=== PATIENT | female | born 1960 | race Caucasian/White ===

== ENCOUNTER 2022-09-19 08:02 | Outpatient (REF) | payer OTHER, SELFPAY ==
--- NOTE | ~2022-09-19 | MM_ITS ---
EXAMINATION: MM SCREENING DIGITAL BREAST TOMOSYNTHESIS, BILATERAL CLINICAL INFORMATION: Screening. Asymptomatic. The lifetime risk of breast cancer based on the Tyrer-Cuzick Model is 10%. COMPARISON: Mammography: June 11, 2021 and studies dating back to December 04, 2017 TECHNIQUE: Digital breast tomosynthesis is performed in both the craniocaudal and mediolateral oblique views along with computer-aided detection (CAD). Synthesized 2D images are generated from the tomosynthesis. FINDINGS: The breasts are heterogeneously dense, which may obscure small masses (ACR BI-RADS breast composition Category c). There are no significant masses, abnormal calcifications, or other abnormalities. MM/MM tomosynthesis screening BI IMPRESSION: No significant changes ASSESSMENT: BI-RADS 1: Negative RECOMMENDATION: Routine annual mammography screening. This patient's information was entered into a reminder system with a target due date for their next mammogram.
== END 2022-09-19 08:03 | disposition home or self-care (01) ==
LOC: HO.MAMMO 08:02
PROVIDERS: Visit Provider Nurse Practitioner Adult Health
DX: Z12.31 Encounter for screening mammogram for malignant neoplasm of breast (principal)
CPT/HCPCS: 77063; 77067

== ENCOUNTER 2023-05-19 14:14 | Outpatient (AMB) | payer OTHER, SELFPAY ==
--- NOTE | 2023-05-19 14:40 | A.OFFPC_ITS ---
Vital Signs 05/19/23 14:42 Height 5 ft 6 in Weight 148 lb 4 oz BMI 23.9 BP 130/70 Blood Pressure Location Lt brachial Position Sitting Pulse 66 Pulse Source Pulse Oximeter Pulse Oximetry (%) 96 Oxygen Delivery Method Room Air Intake Visit Reasons: new patient establish Intake Note: Patient is a new patient here to establish care for Seasonal Allergies. Transferring care from Dr Louise . Medical records have not been requested and have not received. Servicer Travel Trailers Required: No Bottle And Glass Inspector: Not Required per policy Accompanied by: Self / Same As Patient Allergies Seasonal Allergies Allergy (Intermediate, Verified 05/19/23 15:56) Runny Nose sulfamethoxazole [From Bactrim] Allergy (Intermediate, Verified 05/19/23 15:56) Stomach Upset trimethoprim [From Bactrim] Allergy (Intermediate, Verified 05/19/23 15:56) Stomach Upset Medication List - Last Reconciled 05/19/23 by Gustavo Ley MD azelastine 1 spray intranasal BID fluticasone propionate 50 mcg/actuation (Flonase Allergy Relief) 2 sprays intranasal DAILY montelukast 10 mg PO DAILY Tobacco use date assessed: 05/19/23 Dental Screening Dental Screen Date: 05/19/23 Did you have a dental visit in the last 12 months?: Yes Did you have a dental problem in the last 6 months where you did not have access to dental care?: No Was dental information given to patient?: Patient has dentist HPI new patient establish HPI Details 62-year-old female presents to the [facility] wishing to establish her care here. She is up-to-date on her screening procedures. Patient has past medical conditions including mitral valve prolapse and nasal polyps. She takes Singulair, Flonase and azelastine. Combination of the 3 medications keeps her symptoms under well control. Patient exercises during the summer. Nonsmoker and is a social drinker. [facility] Medical History (Updated 05/19/23 @ 15:54 by Gustavo Ley MD) Mitral valve prolapse Nasal polyps Surgical History (Updated 05/19/23 @ 14:50 by MILLA Waters) History of neck surgery Social History (Updated 05/19/23 @ 14:51 by MILLA Waters) Housing: House Alcohol intake: current Alcohol intake frequency: holidays/special occasions only Patient Tobacco Use Status: Never used Tobacco e-Cigarette/Vaping Use: Never Used Second Hand Smoke Exposure: No service: No Current occupational status: employed Cognitive needs: No Hearing needs: No Vision needs: Yes (glasses) Questionnaire PHQ-9 Over the last 2 weeks, how often have you been bothered by any of the following problems? 1. Little interest or pleasure in doing things: not at all 2. Feeling down, depressed, or hopeless: not at all 3. Trouble falling or staying asleep, or sleeping too much: not at all 4. Feeling tired or having little energy: not at all 5. Poor appetite or overeating: not at all 6. Feeling bad about yourself - or that you are a failure or have let yourself or your family down: not at all 7. Trouble concentrating on things, such as reading the newspaper or watching television: not at all 8. Moving or speaking so slowly that other people could have noticed. Or the opposite - being so fidgety or restless that you have been moving around a lot more than usual: not at all 9. Thoughts that you would be better off or of hurting yourself in some way: not at all Total score: 0 Depression Screening Interpretation: Negative Depression Screening Done: Yes Source: Developed by Drs. Ignacio Tsai, Agustina Reyes, Salazar Tabor and colleagues, with an educational gracie from [employer]. Thrive Questionnaire Date Thrive assessed: 05/19/23 I am a: Patient What is your living situation today?: I have a steady place to live Within the past 12 months, did the food you bought not last and you didn't have the money to get more?: Never true Within the past 12 months, did you worry whether your food would run out before you got money to buy more?: Never true Do you have trouble paying for medicines?: No Do you have trouble getting transportation to medical appointments?: No Do you have trouble paying your heating and electricity bill?: No Do you have trouble taking care of your child, family member or friend?: No Do you have trouble with day-to-day activities such as bathing, preparing meals, shopping, managing finances, etc.?: No Are you currently unemployed and looking for a job?: No Are you interested in more education?: No AUDIT C Alcohol Use Questionnaire (AUDIT-C) 1. How often do you have a drink containing alcohol?: Never Total Score: 0 POP-7 AMB Questionnaire POP-7 Date POP - 7 assessed: 05/19/23 Feeling nervous, anxious, or on edge: 0 = Not at all Not being able to stop or control worryin = Not at all Worrying too much about different things: 0 = Not at all Trouble relaxin = Not at all Being so restless that it is hard to sit still: 0 = Not at all Becoming easily annoyed or irritable: 0 = Not at all Feeling afraid as if something awful might happen: 0 = Not at all Total POP-7 score (0-4 normal; 5-9 mild; 10-14 moderate; 15-21 severe): 0 Source: Developed by Drs. Ignacio Tsai, Agustina Reyes, Salazar Tabor and colleagues, with an educational gracie from [employer]. Physical exam (Primary Care) Vital Signs: Last Vital Signs Pulse 66 05/19/23 14:42 BP 130/70 05/19/23 14:42 Pulse Ox 96 05/19/23 14:42 Oxygen Delivery Method Room Air 05/19/23 14:42 BMI result Body Mass Index 23.9 Tobacco/Smoking Status: Tobacco use Status Tobacco use date assessed 05/19/23 05/19/23 14:53 Patient Tobacco Use Status Never used Tobacco 05/19/23 14:53 e-Cigarette/Vaping Use Never Used 05/19/23 14:53 PHQ-9: PHQ-9 Score PHQ-9: Total score 0 05/19/23 14:53 Depression Screening Interpretation: Negative Thrive Assessment: Date of Thrive Assessment Date Thrive assessed 05/19/23 05/19/23 14:53 Const General: cooperative and healthy appearing Nutritional Appearance: well nourished Orientation/consciousness: patient oriented x3 Limitations: no limitations HENMT Head: Yes normal to inspection Eyes General: appearance normal, both eyes and all related structures Neck Neck: Yes normal visual inspection Chest Chest palpation & inspection: normal palpation of entire chest wall Resp Effort & Inspection: normal respiratory effort Neuro General: patient oriented x3 Assessment and Plan Assessment & Plan (1) Mitral valve prolapse: Code(s): I34.1 - Nonrheumatic mitral (valve) prolapse Plan: Condition is stable. Continue current medications. (2) Nasal polyps: Code(s): J33.9 - Nasal polyp, unspecified Plan: Continue current combination. Orders: Orders UA and rflx microscopic Today I34.1 - Nonrheumatic mitral (valve) prolapse, J33.9 - Nasal polyp, unspecified Basic Metabolic Panel Today I34.1 - Nonrheumatic mitral (valve) prolapse, J33.9 - Nasal polyp, unspecified Complete Blood Count no Diff Today I34.1 - Nonrheumatic mitral (valve) prolapse, J33.9 - Nasal polyp, unspecified Lipid Panel Today I34.1 - Nonrheumatic mitral (valve) prolapse, J33.9 - Nasal polyp, unspecified Liver Panel Today I34.1 - Nonrheumatic mitral (valve) prolapse, J33.9 - Nasal polyp, unspecified Thyroid Stimulating Hormone Today I34.1 - Nonrheumatic mitral (valve) prolapse, J33.9 - Nasal polyp, unspecified Hemoglobin A1c Today I34.1 - Nonrheumatic mitral (valve) prolapse, J33.9 - Nasal polyp, unspecified C Reactive Protein Today I34.1 - Nonrheumatic mitral (valve) prolapse, J33.9 - Nasal polyp, unspecified Coding Level of Care Code New Pt Level 4 (55162) Diagnoses Mitral valve prolapse I34.1 Nasal polyps J33.9
[2023-05-19 14:42] VITALS: BP 130/70; PULSE 66; O2SAT 96; BMI 23.9
== END 2023-05-19 15:51 | disposition home or self-care (01) ==
PROVIDERS: PCP Internal Medicine; Visit Provider Internal Medicine
DX: I34.1 Nonrheumatic mitral (valve) prolapse (principal); J33.9 Nasal polyp, unspecified
CPT/HCPCS: 99204

== ENCOUNTER 2023-06-05 07:43 | Outpatient (REF) | payer OTHER, SELFPAY ==
[2023-06-05 08:14] LABS: Hematocrit 36.5 % (37.0-47.0); Hemoglobin 12.6 g/dl (12.0-16.0); Mean Corpuscular HGB Conc 34.5 g/dl (31.0-35.0); Mean Corpuscular Volume 89.7 fL (80.0-98.0); Mean Platelet Volume 10.4 fL (9.4-12.3); Platelet Count 245 X10*3/uL (160-400); Red Blood Count 4.07 X10*6/uL (4.20-5.50); White Blood Count 4.8 X10*3/uL (4.8-10.8)
[2023-06-05 08:43] LABS: Estimated Average Glucose 103 mg/dL; Hemoglobin A1c % 5.2 % (<6.0)
[2023-06-05 08:47] LABS: Appearance Urine Clear; Color Urine Yellow; Glucose Urine UA Negative (Negative); Leukocyte Esterase Urine Negative (Negative); Nitrite Urine Negative (Negative); PH 6.5 (5.0-9.0); Specific Gravity - Urine 1.025 (1.005-1.025); Urine Blood Negative (Negative); Urine Ketones Negative (Negative); Urine Protein Negative (Neg-Trace)
[2023-06-05 09:36] LABS: Alanine Aminotransferase 16 U/L (0-31); Albumin Level 4.2 g/dL (3.5-5.0); Alkaline Phosphatase 64 U/L (39-117); Anion Gap 11 (12-20); Aspartate Amino Transferase 16 U/L (5-31); Bilirubin Direct 0.1 mg/dL (0.0-0.5); Bilirubin Total 0.3 mg/dL (0.0-1.0); Blood Urea Nitrogen 15 mg/dL (9-16); C Reactive Protein 0.11 mg/dL (< or = 0.50); Calcium 9.3 mg/dL (8.4-10.2); Carbon Dioxide 28 mmol/L (22-29); Chloride 106 mmol/L (96-108); Cholesterol 189 mg/dL (<200); Estimated Glomerular Filt Rate > 60; Glucose Random 99 mg/dL (60-115); HDL Cholesterol 69 mg/dL (>40); LDL Cholesterol Calculated 109 mg/dL (<100); Potassium 4.3 mmol/L (3.3-5.1); Sodium 141 mmol/L (135-145); Triglycerides 59 mg/dL (<150)
[2023-06-05 09:43] LABS: Thyroid Stimulating Hormone 1.18 uIU/mL (0.32-4.0)
== END 2023-06-05 07:44 | disposition home or self-care (01) ==
LOC: HO.LAB 07:43
PROVIDERS: PCP Internal Medicine; Visit Provider Internal Medicine
DX: I34.1 Nonrheumatic mitral (valve) prolapse (principal); J33.9 Nasal polyp, unspecified
CPT/HCPCS: 36415; 80048; 80061; 80076; 81003; 83036; 84443; 85027; 86140

== ENCOUNTER 2023-09-22 12:04 | Outpatient (REF) | payer OTHER, SELFPAY ==
--- NOTE | ~2023-09-22 | MM_ITS ---
EXAMINATION: MM SCREENING DIGITAL BREAST TOMOSYNTHESIS, BILATERAL CLINICAL INFORMATION: Screening. Asymptomatic. COMPARISON: Mammography: 09/19/2022 ([facility]), 06/11/2021, 06/09/2020, 06/03/2019, 05/20/2019, and 12/04/2017 ([facility]) TECHNIQUE: Digital breast tomosynthesis is performed in both the craniocaudal and mediolateral oblique views along with computer-aided detection (CAD). Synthesized 2D images are generated from the tomosynthesis. An added right CC view was also obtained. FINDINGS: The breasts are heterogeneously dense, which may obscure small masses (ACR BI-RADS breast composition Category c). There are no suspicious masses, suspicious grouped calcifications, or areas of architectural distortion in either breast. The parenchymal pattern is stable from numerous prior exams. No skin or axillary abnormalities. MM/MM tomosynthesis screening BI IMPRESSION: No mammographic evidence of malignancy. ASSESSMENT: BI-RADS BI-RADS 1 - Negative RECOMMENDATION: Routine annual mammography screening. 1 year F/U This examination should not preclude the clinical evaluation of a suspicious palpable abnormality. This patient's information was entered into a reminder system with a target due date for their next mammogram.
== END 2023-09-22 12:05 | disposition home or self-care (01) ==
LOC: HO.MAMMO 12:04
PROVIDERS: PCP Internal Medicine; Visit Provider Internal Medicine
DX: Z12.31 Encounter for screening mammogram for malignant neoplasm of breast (principal)
CPT/HCPCS: 77063; 77067

== ENCOUNTER → 2023-09-22 12:15 | Outpatient (BNV) | payer OTHER, SELFPAY | PROVIDERS: PCP Internal Medicine; Visit Provider Radiology Diagnostic Radiology | DX: Z12.31 Encounter for screening mammogram for malignant neoplasm of breast (principal) | CPT/HCPCS: 77063; 77067 ==

== ENCOUNTER 2023-10-06 10:28 | Outpatient (AMB) | payer OTHER, SELFPAY ==
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
== END 2023-10-06 11:10 | disposition home or self-care (01) ==
PROVIDERS: PCP Internal Medicine; Visit Provider Orthopaedic Surgery
DX: S42.002A Fracture of unspecified part of left clavicle, initial encounter for closed fracture (principal); S42.132A Displaced fracture of coracoid process, left shoulder, initial encounter for closed fracture; S97.82XA Crushing injury of left foot, initial encounter
CPT/HCPCS: 99203

== ENCOUNTER → 2023-10-06 10:28 | Outpatient (BNVA) | payer OTHER, SELFPAY | PROVIDERS: PCP Internal Medicine; Visit Provider Orthopaedic Surgery ==

== ENCOUNTER 2023-10-08 09:17 | Outpatient (REF) | payer OTHER, SELFPAY ==
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
== END 2023-10-08 09:18 | disposition home or self-care (01) ==
LOC: HO.XRAY 09:17
PROVIDERS: PCP Internal Medicine; Visit Provider Surgery
DX: S22.49XA Multiple fractures of ribs, unspecified side, initial encounter for closed fracture (principal); V89.2XXA Person injured in unspecified motor-vehicle accident, traffic, initial encounter; Y93.9 Activity, unspecified; Y92.9 Unspecified place or not applicable; Y99.9 Unspecified external cause status
CPT/HCPCS: 71046

== ENCOUNTER 2023-10-08 09:40 | Outpatient (AMB) | payer OTHER, SELFPAY ==
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
[2023-10-08 09:52] VITALS: BP 166/92; PULSE 95; O2SAT 97; BMI 23.9
== END 2023-10-08 10:31 | disposition home or self-care (01) ==
PROVIDERS: PCP Internal Medicine; Visit Provider Surgery
DX: S22.49XA Multiple fractures of ribs, unspecified side, initial encounter for closed fracture (principal)
CPT/HCPCS: 99204

== ENCOUNTER 2023-10-08 13:18 | Outpatient (AMB) | payer OTHER, SELFPAY ==
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
[2023-10-08 13:22] VITALS: BP 120/64; PULSE 74; O2SAT 96; BMI 23.6
== END 2023-10-08 13:50 | disposition home or self-care (01) ==
PROVIDERS: PCP Internal Medicine; Visit Provider Internal Medicine
DX: S22.49XA Multiple fractures of ribs, unspecified side, initial encounter for closed fracture (principal)
CPT/HCPCS: 99214

== ENCOUNTER 2023-11-10 09:16 | Outpatient (REF) | payer OTHER, SELFPAY | END 2023-11-10 09:17 | disposition home or self-care (01) | LOC: HO.HOSX 09:16 | PROVIDERS: PCP Internal Medicine; Visit Provider Orthopaedic Surgery | DX: Z13.89 Encounter for screening for other disorder (principal) ==

== ENCOUNTER 2023-11-10 09:16 | Outpatient (AMB) | payer OTHER, SELFPAY ==
--- NOTE | 2023-11-10 09:17 | A.OFFVIS_ITS ---
Vital Signs 11/10/23 09:23 Height 5 ft 7 in Weight 146 lb BMI 22.9 Handedness Right Intake Visit Reasons: OV- Multiple Fx - DOI: 09/25/23 Intake Note: Brittanie is a 63 year old right hand dominant female who presents today wearing her sling for a follow up visit for Multiple Fx - DOI: 09/25/23. Patient reports she has been noticing she is getting her strength back very little daily. Right shoulder is doing good and left is showing improvement. The lateral aspect of her left foot swelled up this past weekend so she is concerned there may be a broken bone. She elevated it overnight and iced it which provided her mild relief. She would also like to discuss possibly getting a referral for PT. She is lifting between 5-8 lbs now and would like to discuss activities she can do. Allergies Seasonal Allergies Allergy (Intermediate, Verified 10/08/23 13:53) Runny Nose sulfamethoxazole [From Bactrim] Allergy (Intermediate, Verified 10/08/23 13:53) Stomach Upset trimethoprim [From Bactrim] Allergy (Intermediate, Verified 10/08/23 13:53) Stomach Upset hydromorphone [From Dilaudid] Adverse Reaction (Severe, Verified 10/08/23 13:53) Vomiting oxycodone [From OxyContin] Adverse Reaction (Severe, Verified 10/08/23 13:53) Vomiting HPI HPI OV- Multiple Fx - DOI: 09/25/23: Details: Brittanie is a 63 year old female who presents today wearing her sling for a follow up visit for Multiple Fx - DOI: 09/25/23. Patient reports she has been noticing she is getting her strength back very little daily. Right shoulder is doing good and left is showing improvement. The lateral aspect of her left foot swelled up this past weekend so she is concerned there may be a broken bone. She elevated it overnight and iced it which provided her mild relief. She would also like to discuss possibly getting a referral for PT. She is lifting between 5-8 lbs now and would like to discuss activities she can do. 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 90 deg shoulder abduction left foot with mild ttp retrofibular groove. no effusion. full rom Assessment & Plan Assessment & Plan (1) Closed left clavicular fracture: Code(s): S42.002A - Fracture of unspecified part of left clavicle, initial encounter for closed fracture Category: Medical Plan: ROM as tolerated. f/u 6 weeks with xray (2) Crush injury of left foot: Code(s): S97.82XA - Crushing injury of left foot, initial encounter Category: Medical Plan: rom as tolerated. f/u 6 weeks for radiographs Orders: Orders XR clavicle LT Today S42.002A - Fracture of unspecified part of left clavicle, initial encounter for closed fracture Coding Level of Care Code Est Pt Level 4 (16701) Diagnoses Closed left clavicular fracture S42.002A Crush injury of left foot S97.82XA
[2023-11-10 09:23] VITALS: BMI 22.9
== END 2023-11-10 09:36 | disposition home or self-care (01) ==
PROVIDERS: PCP Internal Medicine; Visit Provider Orthopaedic Surgery
DX: S42.002A Fracture of unspecified part of left clavicle, initial encounter for closed fracture (principal); S97.82XA Crushing injury of left foot, initial encounter
CPT/HCPCS: 99213

== ENCOUNTER 2023-12-09 10:11 | Outpatient (REF) | payer OTHER, SELFPAY ==
--- NOTE | ~2023-12-09 | XR_ITS ---
EXAMINATION: XR CLAVICLE, LEFT CLINICAL INFORMATION: Fracture left clavicle. COMPARISON: X-ray left clavicle September 2023. TECHNIQUE: Two views of the left clavicle. FINDINGS: Transverse displaced fracture of the middle third of the clavicle, unchanged in appearance. No osseous bridging. Over a full shaft's width displacement of the distal fragment, unchanged. Acromioclavicular Joint: Normal. Previously noted soft tissue gas no longer present. Partially visualized left and right lungs normal. XR/XR clavicle LT IMPRESSION: No change in the appearance of the displaced fracture of the left clavicle. No osseous bridging. Electronically signed by: Madi Siegel MD 01/01/2024 10:27 PM EDT
== END 2023-12-09 10:12 | disposition home or self-care (01) ==
LOC: HO.XRAY 10:11
PROVIDERS: Visit Provider Orthopaedic Surgery
DX: S42.002A Fracture of unspecified part of left clavicle, initial encounter for closed fracture (principal)
CPT/HCPCS: 73000

== ENCOUNTER 2023-12-22 10:32 | Outpatient (AMB) | payer OTHER, SELFPAY ==
--- NOTE | 2023-12-22 10:43 | A.OFFVIS_ITS ---
Intake Visit Reasons: OV-Multiple Fx - DOI: 09/25/23-6 week follow up Intake Note: Brittanie is a 63 year old right hand dominant female who presents today wearing her sling for a follow up visit for Multiple Fx - DOI: 09/25/23. Patient reports that she is doing well, making improvements . She has not concerns at this time. She continues to do home exercise program and the numbness and tingling of the left leg has been improving. Allergies Seasonal Allergies Allergy (Intermediate, Verified 12/22/23 10:46) Runny Nose sulfamethoxazole [From Bactrim] Allergy (Intermediate, Verified 12/22/23 10:46) Stomach Upset trimethoprim [From Bactrim] Allergy (Intermediate, Verified 12/22/23 10:46) Stomach Upset hydromorphone [From Dilaudid] Adverse Reaction (Severe, Verified 12/22/23 10:46) Vomiting oxycodone [From OxyContin] Adverse Reaction (Severe, Verified 12/22/23 10:46) Vomiting HPI HPI OV-Multiple Fx - DOI: 09/25/23-6 week follow up: Details: Brittanie is a 63 year old right hand dominant female who presents today wearing her sling for a follow up visit for Multiple Fx - DOI: 09/25/23. Patient reports that she is doing well, making improvements . She has not concerns at this time. She continues to do home exercise program and the numbness and tingling of the left leg has been improving. 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 90 deg shoulder abduction left foot with mild ttp retrofibular groove. no effusion. full rom Left shoulder with prominent mid clavicular clavicle fracture. No tenderness to palpation and full range of motion. Results Reviewed Results Reviewed: I personally reviewed relevant radiographs. There is a mid shaft clavicle fracture with no evidence of healing Assessment & Plan Assessment & Plan (1) Crush injury of left foot: Code(s): S97.82XA - Crushing injury of left foot, initial encounter Category: Medical Plan: Her foot is improving. She is walking a street shoes and less bothered than kayla or. No intervention warranted. (2) Rib fractures: Code(s): S22.49XA - Multiple fractures of ribs, unspecified side, initial encounter for closed fracture Category: Surgical Plan: Rib fractures are improving as well. She is able to breathe comfortably and has no pain. (3) Closed left clavicular fracture: Code(s): S42.002A - Fracture of unspecified part of left clavicle, initial encounter for closed fracture Category: Medical Plan: Left clavicle fracture is not healing. She has no pain and full range of motion. We had a discussion regarding surgical versus nonsurgical options. She is pretty adamant that she does not want surgery at this time. I ordered a bone stimulator as there is evidence of delayed union. I suspect that this will be insufficient to get it to heal but it is worth a try. Coding Level of Care Code Est Pt Level 4 (86207) Diagnoses Crush injury of left foot S97.82XA Rib fractures S22.49XA Closed left clavicular fracture S42.002A
== END 2023-12-22 11:33 | disposition home or self-care (01) ==
PROVIDERS: PCP Internal Medicine; Visit Provider Orthopaedic Surgery
DX: S97.82XA Crushing injury of left foot, initial encounter (principal); S22.49XA Multiple fractures of ribs, unspecified side, initial encounter for closed fracture; S42.002A Fracture of unspecified part of left clavicle, initial encounter for closed fracture
CPT/HCPCS: 99214

== ENCOUNTER → 2023-12-22 10:32 | Outpatient (BNVA) | payer OTHER, SELFPAY | PROVIDERS: PCP Internal Medicine; Visit Provider Orthopaedic Surgery ==

== ENCOUNTER 2024-01-08 12:14 | Outpatient (REF) | payer OTHER, SELFPAY ==
--- NOTE | ~2024-01-08 | XR_ITS ---
EXAMINATION: XR CLAVICLE, LEFT CLINICAL INFORMATION: Fracture. COMPARISON: Radiograph left clavicle 12/09/2023. TECHNIQUE: Two views of the left clavicle. FINDINGS: Displaced fracture of the middle third of the clavicle, not significantly changed. No osseous bridging. Mild degenerative osteoarthritis of the acromioclavicular joint. No significant soft tissue abnormality. Included portions of the lungs and ribs are within normal limits. XR/XR clavicle LT IMPRESSION: Displaced fracture of the middle third of the clavicle, not significantly changed. No osseous bridging. Electronically signed by: Ellyn Claudio MD 01/08/2024 04:10 PM EDT
== END 2024-01-08 12:15 | disposition home or self-care (01) ==
LOC: HO.HOSX 12:14
PROVIDERS: PCP Internal Medicine; Visit Provider Orthopaedic Surgery
DX: S42.022D Displaced fracture of shaft of left clavicle, subsequent encounter for fracture with routine healing (principal)
CPT/HCPCS: 73000

== ENCOUNTER 2024-01-08 12:14 | Outpatient (AMB) | payer OTHER, SELFPAY ==
--- NOTE | 2024-01-08 12:19 | A.OFFVIS_ITS ---
Vital Signs 01/08/24 12:20 Height 5 ft 7 in Weight 146 lb BMI 22.9 Intake Visit Reasons: OV, L clavicle pain Intake Note: Brittanie is a 63 year old right hand dominant female who presents today wearing her sling for a follow up visit for Multiple Fx - DOI: 09/25/23. Patient reports that her dog had bumped into her left shoulder on 12/21/23, her shoulder has been getting progressively worse with pain in the anterior and posterior aspect of the shoulder. Reports that it just doesnt feel right She is taking Tylenol and Motrin which are not helping as well as lidocaine patch. She did receive the bone stimulator and has used this once. Allergies Seasonal Allergies Allergy (Intermediate, Verified 01/08/24 12:25) Runny Nose sulfamethoxazole [From Bactrim] Allergy (Intermediate, Verified 01/08/24 12:25) Stomach Upset trimethoprim [From Bactrim] Allergy (Intermediate, Verified 01/08/24 12:25) Stomach Upset hydromorphone [From Dilaudid] Adverse Reaction (Severe, Verified 01/08/24 12:25) Vomiting oxycodone [From OxyContin] Adverse Reaction (Severe, Verified 01/08/24 12:25) Vomiting HPI HPI OV, L clavicle pain: Details: Brittanie is a 63 year old right hand dominant female who presents today wearing her sling for a follow up visit for Multiple Fx - DOI: 09/25/23. Patient reports that her dog had bumped into her left shoulder on 12/21/23, her shoulder has been getting progressively worse with pain in the anterior and posterior aspect of the shoulder. Reports that it just doesnt feel right She is taking Tylenol and Motrin which are not helping as well as lidocaine patch. She did receive the bone stimulator and has used this once. 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 She has pain with overhead motion. Skin is intact. Assessment & Plan Assessment & Plan (1) Closed left clavicular fracture: Code(s): S42.002A - Fracture of unspecified part of left clavicle, initial encounter for closed fracture Category: Medical Plan: This is a 63-year-old with a displaced left clavicle fracture. X-rays were ordered and I will contact her tomorrow regarding treatment options but I do think she would benefit from surgical intervention. I discussed the surgical and nonsurgical options and she expressed understanding. I will contact her tomorrow after the radiographs are obtained and will finish up our conversation regards to a decision. Orders: Orders XR clavicle LT 01/08/24 S42.002A - Fracture of unspecified part of left clavicle, initial encounter for closed fracture Coding Level of Care Code Est Pt Level 3 (82379) Diagnoses Closed left clavicular fracture S42.002A
[2024-01-08 12:20] VITALS: BMI 22.9
== END 2024-01-08 13:14 | disposition home or self-care (01) ==
PROVIDERS: PCP Internal Medicine; Visit Provider Orthopaedic Surgery
DX: S42.002A Fracture of unspecified part of left clavicle, initial encounter for closed fracture (principal)
CPT/HCPCS: 99213

== ENCOUNTER 2024-01-09 10:23 | Outpatient (AMB) | payer OTHER, SELFPAY ==
--- NOTE | 2024-01-09 10:24 | MHC.OFFVIS ---
Intake Visit Reasons: Tel-L clavicle pain/Xray results Intake Note: Brittanie is a 63 year old female who presents today VIA telephone to discuss results of Xray taken 01/08/24 Allergies Seasonal Allergies Allergy (Intermediate, Verified 01/08/24 12:25) Runny Nose sulfamethoxazole [From Bactrim] Allergy (Intermediate, Verified 01/08/24 12:25) Stomach Upset trimethoprim [From Bactrim] Allergy (Intermediate, Verified 01/08/24 12:25) Stomach Upset hydromorphone [From Dilaudid] Adverse Reaction (Severe, Verified 01/08/24 12:25) Vomiting oxycodone [From OxyContin] Adverse Reaction (Severe, Verified 01/08/24 12:25) Vomiting HPI HPI Tel-L clavicle pain/Xray results: Details: Brittanie is a 63 year old female who presents today VIA telephone to discuss results of Xray taken 01/08/24. we had a long discussion yesterday regarding her left clavicle. It has been hurting her more every day. 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 displaced and non healing clavicular shaft fracture on the left Assessment & Plan Assessment & Plan (1) Closed left clavicular fracture: Code(s): S42.002A - Fracture of unspecified part of left clavicle, initial encounter for closed fracture Category: Medical Plan: This is a 63-year-old active and healthy woman with a nonhealing displaced left clavicle fracture. We had been trying nonoperative management but she states her pain is worsening and she feels that the medial clavicle was more prominent and she is having increasing difficulty moving her left shoulder. I reviewed the radiographs with her and had a long discussion regarding treatment options including the risks, benefits and alternatives. Together we agreed to proceed forward with operative fixation of her left clavicle. I will have her schedule a time with our patient scheduler. I anticipate 2 weeks off from work and then working from home followed by likely return to the office at 6 weeks. Coding Level of Care Code Tele Est Pt Level 4 (59684) Diagnoses Closed left clavicular fracture S42.002A
== END 2024-01-09 10:40 | disposition home or self-care (01) ==
LOC: HO.HOS 10:23
PROVIDERS: PCP Internal Medicine; Visit Provider Orthopaedic Surgery
DX: S42.002A Fracture of unspecified part of left clavicle, initial encounter for closed fracture (principal)
CPT/HCPCS: 99214

== ENCOUNTER → 2024-01-09 10:23 | Outpatient (BNVA) | payer OTHER, SELFPAY | PROVIDERS: PCP Internal Medicine; Visit Provider Orthopaedic Surgery ==

== ENCOUNTER 2024-01-21 09:52 | Day surgery (SDC) | payer OTHER, SELFPAY ==
--- NOTE | 2024-01-19 15:54 | HO.ANESPROP2 ---
Documented by User: Nasima Jimenez NP 01/19/24 16:00 HPI - Anesthesia Eval Consult details Narrative: 63yo F for Left Clavicle ORIF Patient had a golf cart injury on September 24. In the process she had multiple trauma. She fractured her right shoulder, left clavicle, 6 rib fractures with pneumothorax.al. In addition patient had a fracture of her sinus with laceration of the skin over her cheek bone. Patient was admitted to [facility] ~ 1 week. [facility] Active Problems Active Problems: All Active Problems Rib fractures (Acute) Crush injury of left foot (Acute) Closed coracoid process fracture (Acute) Closed left clavicular fracture (Acute) Mitral valve prolapse (Acute) Nasal polyps (Acute) Past Medical History Medical History Fracture Mitral valve prolapse Nasal polyps Surgical History Surgical History Hx of cervical discectomy Hx of chest tube placement Hx of colonoscopy History of neck surgery Social History Social History Housing: House Alcohol intake: current Alcohol intake frequency: does not drink Patient Tobacco Use Status: Never used Tobacco e-Cigarette/Vaping Use: Never Used Second Hand Smoke Exposure: No Have you been hit, kicked, punched, or otherwise hurt by someone within the past year? 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Confirmed ?Last Taken ?Type azelastine 137 mcg (0.1 %) nasal 1 spray intranasal BID 05/19/23 10/08/23 01/21/24 History spray fluticasone propionate 50 2 spray intranasal DAILY 05/19/23 10/08/23 01/21/24 History mcg/actuation nasal spray,suspension (Flonase Allergy Relief) acetaminophen 325 mg capsule 650 mg PO Q6H PRN 10/06/23 10/08/23 Unknown History (Tylenol) ibuprofen 600 mg tablet 600 mg PO Q6H PRN 10/06/23 10/08/23 Unknown History methocarbamol 500 mg tablet mg PO 10/06/23 10/08/23 Unknown History Exam Narrative Narrative: XR chest 2V 10/2023 IMPRESSION: 1. No acute intrathoracic disease. 2. Bilateral chest tubes have been removed. No pneumothorax. 3. Subacute right rib fractures and left clavicle fracture. Assessment and Plan Assessment Anesthesia Assessment: Chart Reviewed Documented by User: Catarina Abdi MD 01/21/24 10:44 PMFSH Past Medical History Medical History Fracture Mitral valve prolapse Nasal polyps Family History Family history of problems with anesthesia: No Surgical History Surgical History Hx of cervical discectomy Hx of chest tube placement Hx of colonoscopy History of neck surgery History of Problems with Anesthesia: No Social History Social History Housing: House Alcohol intake: current Alcohol intake frequency: does not drink Patient Tobacco Use Status: Never used Tobacco e-Cigarette/Vaping Use: Never Used Second Hand Smoke Exposure: No Have you been hit, kicked, punched, or otherwise hurt by someone within the past year? 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Confirmed ?Last Taken ?Type azelastine 137 mcg (0.1 %) nasal 1 spray intranasal BID 05/19/23 10/08/23 01/21/24 History spray fluticasone propionate 50 2 spray intranasal DAILY 05/19/23 10/08/23 01/21/24 History mcg/actuation nasal spray,suspension (Flonase Allergy Relief) acetaminophen 325 mg capsule 650 mg PO Q6H PRN 10/06/23 10/08/23 Unknown History (Tylenol) ibuprofen 600 mg tablet 600 mg PO Q6H PRN 10/06/23 10/08/23 Unknown History methocarbamol 500 mg tablet mg PO 10/06/23 10/08/23 Unknown History Exam Airway Mallampati Class: II TM Dist: >3cm Neck ROM: Full Heart: rrr Lungs: cta Assessment and Plan Assessment Anesthesia Assessment: Anesthesia Plan Discussed Final Anesthetic Review Family History of Problems with Anesthesia: No History of Problems with Anesthesia: No NPO: Yes ASA Class: III Final Preanesthetic Review: No Changes in Pt Med Stat, Meds/Allgs Chart Reviewed, Consent Obtained/Reviewed and Anes Risks/Benef Reviewed Patient Risk: Intermediate Procedure Risk: Intermediate Anesthetic Plan Anesthetic Plan: GA and Regional Block Disposition: Standard PACU
[2024-01-21] VITALS (16 sets, daily range): BP systolic 118–156; BP diastolic 50–75; PULSE 52–76; RESP 14–18; TEMP 36.1–36.4; O2SAT 94–98; BMI 22.9
[2024-01-21] MEDS: Lactated Ringers 1,000 ML 100 ML IVCONT (10:36)
--- NOTE | 2024-01-21 12:10 | MHC.SHP ---
Pre-Procedural Eval Section A - 24 Hr Update-Section A only Date of Service: 01/21/24 The patient is an INPATIENT: No Changes since office visit: Yes Cold of Flu in the past 2 weeks, Yes New Medical Problems, Yes Changes in Medication and Yes Patient answered all questions The patient has been examined within 24 hours of the surgical procedure. The History & Physical has been completed within 30 days and I have reviewed it.: Yes Section B - Complete if H&P > 30 days Chief Complaint: Fracture of unspecified part of left clavicle, Allergies: Allergies Allergy/AdvReac Type Severity Reaction Status Date / Time Seasonal Allergies Allergy Intermediate Runny Nose Verified 01/08/24 12:25 sulfamethoxazole Allergy Intermediate Stomach Verified 01/08/24 12:25 [From Bactrim] Upset trimethoprim [From Bactrim] Allergy Intermediate Stomach Verified 01/08/24 12:25 Upset hydromorphone [From Dilaudid] AdvReac Severe Vomiting Verified 01/08/24 12:25 oxycodone [From OxyContin] AdvReac Severe Vomiting Verified 01/08/24 12:25 Plan I have reviewed the history and physical and performed a pertinent physical examination on my patient. No changes have occurred unless specified. Time Spent With Patient Time: Total time managing care of this patient today ____ minutes.
[2024-01-21] MEDS: fentaNYL citrate/PF 100 MCG/2 ML VIAL 50 MCG IVPUSH ×2 (14:26→14:40)
--- NOTE | 2024-01-22 08:58 | P.BOP_ITS ---
Brief Operative Note Date of Service: 01/21/24 Pre-op diagnosis: left clavicle fracture Post-op diagnosis: same Procedure: ORIF left clavicle Implants: Charlton Vitoss Surgeon: Lior Eaton MD Was an Associate Professor Of Automation used for this Procedure?: No Estimated blood loss (mL): 50 IV fluids (mL): 750 Pathology: none sent Condition: stable Disposition: PACU
--- NOTE | 2024-01-27 06:26 | P.OP_ITS ---
Operative Note Operative Note Date of Service: 01/21/24 Narrative: Date of Service: 01/21/24 Pre-op diagnosis: left clavicle fracture Post-op diagnosis: same Procedure: ORIF left clavicle Implants: Arabella Vitoss Surgeon: Lior Eaton MD Was an Sewing Machine Mechanic used for this Procedure?: No Estimated blood loss (mL): 50 IV fluids (mL): 750 Pathology: none sent Condition: stable Disposition: PACU Patient was brought to the operating room and placed in the beach chair position on the surgical table. The site was prepped and draped in standard sterile fashion and a time out was called to identify proper site, proper procedure and IV antibiotics per weight were administered. I began by making a superior incision over the clavicle. Once through skin Littler scissors were used to dissect through the clavicular fascia. The medial fracture fragment was identified and a lobster claw tenaculum was used to stabilize it. The lateral fracture fragment was then identified and, using a combination of irrigation and sharp debridement, I cleaned up the fracture fragments. There were no clear keys to reduction given the sub acute nature of the fracture. This was the shortened with some anterior comminution and a 10 hole bridge plate was selected. I used an additional lobster claw to provisionally reduce the fracture and the bridge plate was placed superiorly and held in place with olive-tipped K-wires while radiographs were obtained. Visually I was satisfied with the fracture reduction and radiographs demonstrated sufficient length of the plate. I then used standard AO technique to place 3 bicortical screws medial to the fracture and 3 bicortical screws medial to the fracture and 5 lateral to it. Again biplanar fluoroscopy was used to confirm appropriate hardware location, fracture reduction and screw length. Once I was satisfied with these parameters I copiously irrigated. I then placed Vitoss synthetic bone stimulant in and directly adjacent to the fracture bed. I closed with absorbable suture, skin glue and Steri-Strips. Patient was placed in sterile dressing and extubated brought to recovery room stable condition there were no known complications.
== END 2024-01-21 16:48 | disposition home or self-care (01) ==
LOC: HO.SSS 09:52
PROVIDERS: PCP Internal Medicine; Visit Provider Orthopaedic Surgery
PROC: (CPT 23515; principal; 2024-01-21 13:20)
DX: S42.002A Fracture of unspecified part of left clavicle, initial encounter for closed fracture (principal); X58.XXXA Exposure to other specified factors, initial encounter; Y93.53 Activity, golf; Y92.9 Unspecified place or not applicable; Y99.8 Other external cause status; Z87.81 Personal history of (healed) traumatic fracture; I34.1 Nonrheumatic mitral (valve) prolapse; J33.9 Nasal polyp, unspecified; J30.2 Other seasonal allergic rhinitis; Z88.2 Allergy status to sulfonamides; Z88.5 Allergy status to narcotic agent; Z98.890 Other specified postprocedural states; Z79.51 Long term (current) use of inhaled steroids; Z79.899 Other long term (current) drug therapy
CPT/HCPCS: 23515; C1713; C9362; J0131; J0665; J0690; J1100; J2250; J2371; J2405; J2704; J3010

== ENCOUNTER → 2024-01-21 09:52 | Outpatient (BNV) | payer OTHER, SELFPAY | PROVIDERS: PCP Internal Medicine; Visit Provider Orthopaedic Surgery | DX: S42.002A Fracture of unspecified part of left clavicle, initial encounter for closed fracture (principal) | CPT/HCPCS: 23515 ==

== ENCOUNTER 2024-01-29 14:47 | Outpatient (AMB) | payer OTHER, SELFPAY ==
--- NOTE | 2024-01-29 14:48 | MHC.OFFVIS ---
Intake Visit Reasons: PO LT clavicle ORIF 01/21/24 NE Intake Note: Brittanie is a 63 year old right hand dominant female who presents today for a post op appointment s/p LT clavicle ORIF 01/21/24 NE. Patient reports she is doing well. She mentions that she hasn't been taking her pain medication as much. Allergies Seasonal Allergies Allergy (Intermediate, Verified 01/29/24 14:52) Runny Nose sulfamethoxazole [From Bactrim] Allergy (Intermediate, Verified 01/29/24 14:52) Stomach Upset trimethoprim [From Bactrim] Allergy (Intermediate, Verified 01/29/24 14:52) Stomach Upset hydromorphone [From Dilaudid] Adverse Reaction (Severe, Verified 01/29/24 14:52) Vomiting oxycodone [From OxyContin] Adverse Reaction (Severe, Verified 01/29/24 14:52) Vomiting HPI HPI PO LT clavicle ORIF 01/21/24 NE: Details: 63-year-old right hand dominant female who presents in the office today 8 days status post left clavicle ORIF, which was performed on 01/21/[address] iLor Eaton. While in the office today, the patient reports she is doing well. She is in the sling. Reports doing pendulum exercises. 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 Sutures are intact. No surrounding erythema or drainage. No signs of infection. NVI. Assessment & Plan Assessment & Plan (1) Closed left clavicular fracture: Code(s): S42.002A - Fracture of unspecified part of left clavicle, initial encounter for closed fracture Category: Medical (2) S/P ORIF (open reduction internal fixation) fracture: Code(s): Z98.890 - Other specified postprocedural states; Z87.81 - Personal history of (healed) traumatic fracture Category: Surgical Plan Ms. Rg is 63-year-old right hand dominant female who presents in the office today 8 days status post left clavicle ORIF, which was performed on 01/21/[address] Lior Eaton. While in the office today, the patient reports she is doing well. She is in the sling. Reports doing pendulum exercises. The patient has dissolvable sutures. Steri-strips will remain intact in place for at least one more week; however, should they fall off prior to that, she does not need to replace them. She may shower. I have placed an order for physical therapy to work on gentle ROM and clavicle ORIF protocol. She was instructed to avoid overhead reaching or lifting. She was restricted from lifting, pushing, or pulling greater than a coffee cup or cell phone. She can wear the sling for comfort for 2 weeks, and then she may discontinue. 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 Follow up will be 4 weeks with x-ray with Dr. Eaton, or sooner if needed. Orders: Orders PT Evaluation and Treatment Today S42.002A - Fracture of unspecified part of left clavicle, initial encounter for closed fracture, Z87.81 - Personal history of (healed) traumatic fracture, Z98.890 - Other specified postprocedural states Patient Instructions: Scribed by Elizabeth Ann medical laboratory manager, for Phylicia Miguel PA-C on 01/29/24 at 03:17 pm EST. Coding Level of Care Code Global (57999) Diagnoses Closed left clavicular fracture S42.002A S/P ORIF (open reduction internal fixation) fracture Z98.890; Z87.81
== END 2024-01-29 15:25 | disposition home or self-care (01) ==
PROVIDERS: PCP Internal Medicine; Visit Provider Physician Assistant
DX: S42.002A Fracture of unspecified part of left clavicle, initial encounter for closed fracture (principal); Z98.890 Other specified postprocedural states; Z87.81 Personal history of (healed) traumatic fracture
CPT/HCPCS: 99024

== ENCOUNTER → 2024-01-29 14:47 | Outpatient (BNVA) | payer OTHER, SELFPAY | PROVIDERS: PCP Internal Medicine; Visit Provider Physician Assistant ==

== ENCOUNTER 2024-02-26 12:24 | Outpatient (REF) | payer OTHER, SELFPAY | END 2024-02-26 12:25 | disposition home or self-care (01) | LOC: HO.HOSX 12:24 | PROVIDERS: Visit Provider Orthopaedic Surgery | DX: S42.002A Fracture of unspecified part of left clavicle, initial encounter for closed fracture (principal) | CPT/HCPCS: 73000 ==

== ENCOUNTER 2024-02-26 14:06 | Outpatient (AMB) | payer OTHER, SELFPAY ==
--- NOTE | 2024-02-26 14:10 | MHC.OFFVIS ---
Intake Visit Reasons: PO LT clavicle ORIF 01/21/24 NE-w/xray Intake Note: Brittanie is a 63 year old right hand dominant female who presents today for a post op appointment s/p LT clavicle ORIF 01/21/24 NE. Currently she is working from home. Patient reports that she is having good and bad days, she is working aggressively with PT. Allergies Seasonal Allergies Allergy (Intermediate, Verified 01/29/24 14:52) Runny Nose sulfamethoxazole [From Bactrim] Allergy (Intermediate, Verified 01/29/24 14:52) Stomach Upset trimethoprim [From Bactrim] Allergy (Intermediate, Verified 01/29/24 14:52) Stomach Upset hydromorphone [From Dilaudid] Adverse Reaction (Severe, Verified 01/29/24 14:52) Vomiting oxycodone [From OxyContin] Adverse Reaction (Severe, Verified 01/29/24 14:52) Vomiting HPI HPI PO LT clavicle ORIF 01/21/24 NE-w/xray: Details: Doing well. No complaints. Wants to go back to work. 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 S/p L clavicle ORIF. Anatomic alignment. No hardware complications Assessment & Plan Assessment & Plan (1) S/P ORIF (open reduction internal fixation) fracture: Code(s): Z98.890 - Other specified postprocedural states; Z87.81 - Personal history of (healed) traumatic fracture Category: Surgical Plan: May return to work. No ROM restrictions but no lifting. F/u 6 weeks Orders: Orders XR clavicle LT 02/26/24 S42.002A - Fracture of unspecified part of left clavicle, initial encounter for closed fracture Coding Level of Care Code Global (85966) Diagnoses S/P ORIF (open reduction internal fixation) fracture Z98.890; Z87.81
== END 2024-02-26 14:35 | disposition home or self-care (01) ==
PROVIDERS: PCP Internal Medicine; Visit Provider Orthopaedic Surgery
DX: Z98.890 Other specified postprocedural states (principal); Z87.81 Personal history of (healed) traumatic fracture
CPT/HCPCS: 99024

== ENCOUNTER 2024-03-30 15:00 | Outpatient (RCR) | payer OTHER, SELFPAY ==
--- NOTE | 2024-04-30 06:35 | MHC.PT.DC ---
[facility] [place] Office [place] Office [place] Office [address] Dimitri Barahona [address] [phone] F: [phone] F: [phone] F: [phone] F: [phone] Physical Therapy Discharge Report Diagnosis: This is a 63 yo female presenting to skilled PT with a script for s/p L clavicular fracture ORIF on 01/21/24. Date of Surgery: 01/21/24 Date of Evaluation: 02/11/24 Date of Discharge: 04/30/24 Treatments to Date: 13 Cancellations to Date: 0 No Shows to Date: 0 Discharge Status: Achieved Goals Improved Function Independent with HEP Discharge Summary: 03/30: Patient has come to 13 visits of PT. She demos WNL AROM and strength. She demos a score of 13 and 5 on the SPADI. At this time she is I in her HEP, ready for DC and has met her goals. DC to HEP Electronically signed by: Sue Pelaez, PT Please sign and return to therapist. Thank you for your referral.
== END 2024-04-30 06:36 | disposition home or self-care (01) ==
LOC: HO.PTCHIC 15:00
PROVIDERS: PCP Internal Medicine; Visit Provider Physician Assistant
DX: S42.002D Fracture of unspecified part of left clavicle, subsequent encounter for fracture with routine healing (principal); Z98.890 Other specified postprocedural states; Z87.81 Personal history of (healed) traumatic fracture
CPT/HCPCS: 97110; 97140; 97162

== ENCOUNTER 2024-04-26 11:48 | Outpatient (REF) | payer OTHER, SELFPAY | END 2024-04-26 11:49 | disposition home or self-care (01) | LOC: HO.HOSX 11:48 | PROVIDERS: Visit Provider Orthopaedic Surgery | DX: Z87.81 Personal history of (healed) traumatic fracture (principal); Z98.890 Other specified postprocedural states | CPT/HCPCS: 73000 ==

== ENCOUNTER 2024-04-26 12:11 | Outpatient (AMB) | payer OTHER, SELFPAY ==
--- OUTSIDE RECORDS SUMMARY | 2024-04-26 12:14 | XMS_ITS | Data Portability ---
Author Organization [facility], , [facility] Address [address] [place] [address] Assessment No assessment recorded. Plan of Treatment Reminders Order Date Submit Date Provider Last Modified By Organization Details Last Modified Time Details Appointments None record ed. Lab None record ed. Referral None record ed. Procedures None record ed. Surgeries None record ed. Imaging None record ed. Medication Orders None record ed. Patient TargetsNo targets recorded. Patient InstructionsNo instructions recorded. Reason for Referral None Reported. Results Created Date Observation Date Name Description Value Unit Range Abnormal Flag Note LastModifiedBy Organization Detail LastModifiedTime Result Notes None recorded. Procedures Surgical History Date Name Laterality Status Provider Name and Address Organization Details Recorded Time 6 Quirino - Colonoscopy completed Jhon Win MD [address] [place] [address], [id number] 10/23/2015 10:07:33 Imaging Results None recorded. Procedure Notes None recorded. Medical Equipment None Reported. Medications Name Sig Start Date Stop Date Status Note LastModified by Organization Details LastModified Time doxycycline monohydrate 100 mg capsule active Not Available Not Availab le Not Available Vitals None Recorded Social History None recorded. Functional Status None recorded. Mental Status None recorded. Family History Nothing Reported. Medical History No medical history recorded. Gynecological HistoryNo gynecological history recorded. Obstetrics History GPAL:G 0 P 0 0 0 0 Past Encounters Encounter ID Performer Location Encounter Start Date Encounter Closed Date Diagnosis/Indication Diagnosis SNOMED-CT Code Diagnosis ICD10 Code [id number] Jhon Win MD [facility], [address] [address] 10/23/2015 08:47:02 10/23/2015 13:48:06 Health Concerns Section Related Observation LastModified by Organization Detai ls LastModified Time None Recorded Concern Status LastModified by Organization Details LastModified Time None Recorded Advance Directives Directive None Recorded Payers Encounter Date Sequence Insurance Name Policy Number Policy Bains Covered Member ID Bains Member ID Guarantor Name 10/23/2015 1 [facility] [employer] ELECT PREFERRED (PPO) [id number] Brittanie Singh [id number] Brittanie Singh OBGyn Episode No OBEpisode recorded.
--- NOTE | 2024-04-26 12:19 | A.OFFVIS_ITS ---
Intake Visit Reasons: PO LT clavicle ORIF 01/21/24 NE-w/xray Intake Note: Brittanie is a 63 year old right hand dominant female who presents today for a post op appointment s/p LT clavicle ORIF 01/21/24 NE. Patient reports she is doing well, states discomfort with cold weather. She has concerns of numbness on her clavicle. Allergies Seasonal Allergies Allergy (Intermediate, Verified 04/26/24 12:32) Runny Nose sulfamethoxazole [From Bactrim] Allergy (Intermediate, Verified 04/26/24 12:32) Stomach Upset trimethoprim [From Bactrim] Allergy (Intermediate, Verified 04/26/24 12:32) Stomach Upset hydromorphone [From Dilaudid] Adverse Reaction (Severe, Verified 04/26/24 12:32) Vomiting oxycodone [From OxyContin] Adverse Reaction (Severe, Verified 04/26/24 12:32) Vomiting HPI HPI PO LT clavicle ORIF 01/21/24 NE-w/xray: Details: Brittanie is a 63 year old right hand dominant female who presents today for a post op appointment s/p LT clavicle ORIF 01/21/24 NE PFSH Medical History Fracture Mitral valve prolapse Nasal polyps Surgical History Hx of cervical discectomy Hx of chest tube placement Hx of colonoscopy History of neck surgery Social History Housing: House Alcohol intake: current Alcohol intake frequency: does not drink Patient Tobacco Use Status: Never used Tobacco e-Cigarette/Vaping Use: Never Used Second Hand Smoke Exposure: No service: No Current occupational status: employed 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 Results Reviewed Results Reviewed: I personally reviewed relevant radiographs. Healing left clavicle fracture. No no hardware complications. Assessment & Plan Assessment & Plan (1) S/P ORIF (open reduction internal fixation) fracture: Code(s): Z98.890 - Other specified postprocedural states; Z87.81 - Personal history of (healed) traumatic fracture Category: Surgical Plan: Doing well. No heavy overhead lifting. Otherwise follow up in 3 months. Orders: Orders XR clavicle LT Today Z87.81 - Personal history of (healed) traumatic fracture, Z98.890 - Other specified postprocedural states Coding Level of Care Code Global (79931) Diagnoses S/P ORIF (open reduction internal fixation) fracture Z98.890; Z87.81
== END 2024-04-26 12:53 | disposition home or self-care (01) ==
PROVIDERS: PCP Internal Medicine; Visit Provider Orthopaedic Surgery
DX: S42.002D Fracture of unspecified part of left clavicle, subsequent encounter for fracture with routine healing (principal); Z87.81 Personal history of (healed) traumatic fracture
CPT/HCPCS: 99212

== ENCOUNTER → 2024-05-29 13:56 | Outpatient (BNVA) | payer OTHER, SELFPAY | PROVIDERS: PCP Internal Medicine ==

== ENCOUNTER 2024-05-29 14:25 | Outpatient (REF) | payer OTHER, SELFPAY ==
--- NOTE | ~2024-05-29 | XR_ITS ---
CLINICAL HISTORY: R05.9 - Cough, unspecified 2 view chest x-ray Comparison: None Findings: There is a linear opacity within the right lower lobe. Left lung is clear. No consolidation or pleural effusion. Normal size heart. Postsurgical changes of the left clavicle. No acute fracture. IMPRESSION: There is a linear focus of atelectasis or scarring within the right lower lobe. This document has been electronically signed by: Brittanei Irwin MD on 05/29/2024 15:22:39
--- OUTSIDE RECORDS SUMMARY | 2024-05-29 14:27 | XMS_ITS | Data Portability ---
Author Organization [facility], , [facility] Address [address] [place] [address] Assessment No assessment recorded. Plan of Treatment [...] Quirino - Colonoscopy completed Jhon Win MD [address] [place] [address], [id number] 10/23/2015 10:07:33 Imaging Results None recorded. Procedure [...] Diagnosis/Indication Diagnosis SNOMED-CT Code Diagnosis ICD10 Code Diagnosis Note [id number] Jhon Win MD [facility], [address] [address] 10/23/2015 08:47:02 10/23/2015 13:48:06 Health Concerns Section Related Observation LastModified by Organization Detai ls LastModified Time None Recorded Concern Status LastModified by Organization Details LastModified Time None Recorded Advance Directives Directive None Recorded Payers Encounter Date Sequence Insurance Name Policy Number Policy Bains Covered Member ID Bains Member ID Guarantor Name 10/23/2015 1 [facility] [employer] ELECT PREFERRED (PPO) [id number] Brittanie Singh [id number] Brittanie Singh OBGyn Episode No OBEpisode recorded.
[2024-05-29 16:30] LABS: Influenza A PCR POSITIVE (Negative); Influenza B PCR NEGATIVE (Negative); Resp Syncy Virus RNA Qual PCR NEGATIVE (Negative); SARS COV2 PCR INHOUSE NEGATIVE (Negative)
== END 2024-05-29 14:26 | disposition home or self-care (01) ==
LOC: HO.HMGCX 14:25
PROVIDERS: PCP Internal Medicine; Visit Provider Nurse Practitioner Family
DX: J11.1 Influenza due to unidentified influenza virus with other respiratory manifestations (principal); R05.1 Acute cough; R09.89 Other specified symptoms and signs involving the circulatory and respiratory systems
CPT/HCPCS: 0241U; 71046

== ENCOUNTER → 2024-05-29 14:29 | Outpatient (BNV) | payer OTHER, SELFPAY | PROVIDERS: PCP Internal Medicine; Visit Provider Radiology Diagnostic Radiology | DX: R05.9 Cough, unspecified (principal) | CPT/HCPCS: 71046 ==

== ENCOUNTER 2024-10-13 15:28 | Outpatient (REF) | payer OTHER, SELFPAY | END 2024-10-13 15:29 | disposition home or self-care (01) | LOC: HO.MAMMO 15:28 | PROVIDERS: PCP Internal Medicine; Visit Provider Internal Medicine | DX: Z12.31 Encounter for screening mammogram for malignant neoplasm of breast (principal) | CPT/HCPCS: 77063; 77067 ==

== ENCOUNTER → 2024-10-13 15:45 | Outpatient (BNV) | payer OTHER, SELFPAY | PROVIDERS: PCP Internal Medicine; Visit Provider Internal Medicine | DX: Z12.31 Encounter for screening mammogram for malignant neoplasm of breast (principal) | CPT/HCPCS: 77063; 77067 ==

== ENCOUNTER 2024-11-22 14:50 | Outpatient (AMB) | payer OTHER, SELFPAY ==
[2024-11-22 14:58] VITALS: BP 132/64; PULSE 71; TEMP 36.2; O2SAT 100; BMI 23.2
--- NOTE | 2024-11-22 14:58 | A.OFFPC_ITS ---
Vital Signs 3 11/22/24 14:58 Height 5 ft 7 in Weight 148 lb 3 oz BMI 23.2 BP 132/64 Blood Pressure Location Lt brachial Position Sitting Pulse 71 Pulse Source Pulse Oximeter Temp 97.1 F Temp Source Temporal Artery Scan Pulse Oximetry (%) 100 Intake Visit Reasons: possible sinus infection? Security Services Manager Required: No Accompanied by: Self / Same As Patient Allergies Seasonal Allergies Allergy (Intermediate, Verified 11/22/24 15:10) Runny Nose sulfamethoxazole (From Bactrim) Allergy (Intermediate, Verified 11/22/24 15:10) Stomach Upset trimethoprim (From Bactrim) Allergy (Intermediate, Verified 11/22/24 15:10) Stomach Upset hydromorphone (From Dilaudid) Adverse Reaction (Severe, Verified 11/22/24 15:10) Vomiting oxycodone (From OxyContin) Adverse Reaction (Severe, Verified 11/22/24 15:10) Vomiting Medication List - Last Reconciled 11/22/24 by STEFFANIE Moulton acetaminophen (Tylenol) 650 mg PO Q6H PRN amoxicillin-pot clavulanate 875-125 mg 1 tab PO BID 7 days azelastine 1 spray intranasal BID fluticasone propionate 50 mcg/actuation (Flonase Allergy Relief) 2 sprays intranasal DAILY ibuprofen 600 mg PO Q6H PRN lidocaine 5% 1 patch topical .PRN montelukast 10 mg PO DAILY oseltamivir (Tamiflu) 75 mg PO Q12H 5 days prednisone 60 mg (3 x 20 mg) PO DAILY Tobacco use date assessed: 11/22/24 Dental Screening Dental Screen Date: 11/22/24 Did you have a dental visit in the last 12 months?: Yes Did you have a dental problem in the last 6 months where you did not have access to dental care?: No Was dental information given to patient?: Patient has dentist HPI possible sinus infection? 2 HPI0 Details The patient is a 64-year-old female presenting with sinusitis and associated symptoms. She has a history of sinus infections occurring twice a year, which led to an ENT evaluation revealing multiple environmental allergies. She has been managing her allergies with Singulair, Flonase, and azelastine, occasionally requiring additional Claritin during environmental changes. Recently, she was prescribed prednisone for a rash suspected to be poison marissa, which did not resolve initially. Following physical exertion, she experienced dizziness and nausea, which have been persistent and worsening, accompanied by sinus pressure and tinnitus. She reports that Z-Paks have been ineffective in the past, with Doxycycline being more beneficial for her sinus issues. Exam showed shelby and boggy turbinates. Left frontal sinus pressure and mild left maxillary pressure. Lungs clear. Denies sob, or coughing. Reports she felt like she had a temperature took Tylenol prior to coming to the appt. 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 1. Little interest or pleasure in doing things: several days 2. Feeling down, depressed, or hopeless: not at all 3. Trouble falling or staying asleep, or sleeping too much: not at all 4. Feeling tired or having little energy: several days 5. Poor appetite or overeating: several days 6. Feeling bad about yourself - or that you are a failure or have let yourself or your family down: not at all 7. Trouble concentrating on things, such as reading the newspaper or watching television: not at all 8. Moving or speaking so slowly that other people could have noticed. Or the opposite - being so fidgety or restless that you have been moving around a lot more than usual: several days 9. Thoughts that you would be better off or of hurting yourself in some way: not at all Total score: 4 Source: Developed by Drs. Ignacio Tsai, Agustina Reyes, Salazar Tabor and colleagues, with an educational gracie from [employer]. Thrive Questionnaire Date Thrive assessed: 11/22/24 I am a: Patient What is your living situation today?: I have a steady place to live Within the past 12 months, did the food you bought not last and you didn't have the money to get more?: Never true Within the past 12 months, did you worry whether your food would run out before you got money to buy more?: Never true Do you have trouble paying for medicines?: No Do you have trouble getting transportation to medical appointments?: No Do you have trouble paying your heating and electricity bill?: No Do you have trouble taking care of your child, family member or friend?: No Do you have trouble with day-to-day activities such as bathing, preparing meals, shopping, managing finances, etc.?: No Are you currently unemployed and looking for a job?: No Are you interested in more education?: No Please select the resources that you would like help with: None Currently or been in a relationship where the following occur: No concerns reported THRIVE Score: 0 AUDIT C Alcohol Use Questionnaire (AUDIT-C) 1. How often do you have a drink containing alcohol?: 2-4 times a month 2. How many drinks containing alcohol do you have on a typical day when you are drinking?: 1 or 2 3. How often do you have six or more drinks on one occasion?: Never Total Score: 2 POP-7 AMB Questionnaire POP-7 Date POP - 7 assessed: 05/19/23 Feeling nervous, anxious, or on edge: 0 = Not at all Not being able to stop or control worryin = Not at all Worrying too much about different things: 0 = Not at all Trouble relaxin = Not at all Being so restless that it is hard to sit still: 0 = Not at all Becoming easily annoyed or irritable: 0 = Not at all Feeling afraid as if something awful might happen: 0 = Not at all Total POP-7 score (0-4 normal; 5-9 mild; 10-14 moderate; 15-21 severe): 0 Source: Developed by Agustina Vaughn Kurt Kroenke and colleagues, with an educational gracie from [employer]. Review of Systems Const Denies body aches, Denies chills, Denies fever(s), Denies headache(s) and Denies poor appetite Eyes Reports no additional complaints ENT Reports dizziness, Denies headache(s), Reports nasal congestion, Reports sinus pressure and Denies sore throat Card Denies chest pain, Denies syncope, Denies edema, Denies irregular heart rhythm, Denies lightheadedness and Denies dyspnea Resp Denies cough and Denies dyspnea GI Denies abdominal pain, Denies diarrhea, Denies nausea and Denies vomiting Reports no additional complaints Musc Reports no additional complaints and Denies abnormal gait Skin/Breast Reports system reviewed and no additional complaints, except as documented Neuro Denies abnormal gait, Reports dizziness, Denies syncope and Denies headache(s) Psych Reports no additional complaints Physical exam (Primary Care) Vital Signs: Last Vital Signs Temp 97.1 F 11/22/24 14:58 Pulse 71 11/22/24 14:58 BP 132/64 11/22/24 14:58 Pulse Ox 100 11/22/24 14:58 BMI result Body Mass Index 23.2 Tobacco/Smoking Status: Tobacco use Status Tobacco use date assessed 11/22/24 11/22/24 15:04 Patient Tobacco Use Status Never used Tobacco 11/22/24 15:04 e-Cigarette/Vaping Use Never Used 11/22/24 15:04 PHQ-9: PHQ-9 Score PHQ-9: Total score 4 11/22/24 15:21 Thrive Assessment: Date of Thrive Assessment Date Thrive assessed 11/22/24 11/22/24 15:04 Currently or been in a relationship where the following occur: No concerns reported Const General: cooperative, healthy appearing, comfortable and no acute distress Orientation/consciousness: patient oriented x3 HENMT Head: Yes normocephalic Ears: TM's normal bilaterally General nose exam: Abnormal mucous membranes and turbinates present boggy and erythematous Face and sinus: Yes sinus tenderness Face images: 2 1. tender to palpation 2. mild tenderness to palpation Eyes General: appearance normal, both eyes and all related structures Conjunctivae: conjunctivae normal Neck Neck: Yes full ROM and Yes no lymphadenopathy Resp Effort & Inspection: normal respiratory effort Auscultation: clear to auscultation bilaterally, no crackles, no rales, no rhonchi and no wheezes Cardio Rate: regular rate Rhythm: regular rhythm GI Palpation (GI): Soft to palpation and nontender Auscultation: normal bowel sounds Skin General skin exam: no rashes or lesions noted Neuro General: patient oriented x3 Gait exam (Neuro): Normal gait present Extrem General: Yes normal to inspection, Yes full ROM and No edema Psych Affect: normal affect Attitude: cooperative Insight: Good insight present (Psych) Judgement: Good judgement present (Psych) Coding Level of Care Code Est Pt Level 3 (32514) Diagnoses Acute recurrent frontal sinusitis J01.11 Sinusitis location: frontal Chronicity: acute Recurrence: recurrent Time Spent (min) 29 Assessment & Plan Assessment & Plan (1) Sinusitis: Code(s): J32.9 - Chronic sinusitis, unspecified Category: Medical Qualifiers: Sinusitis location: frontal Chronicity: acute Recurrence: recurrent Q ualified Code(s): J01.11 - Acute recurrent frontal sinusitis Plan: The patient has a history of sinusitis. She is currently on azelastine intranasal spray b.i.d., alternating with Flonase nose spray, montelukast 10 mg daily and Claritin daily as needed. She recently finished prednisone for poison marissa. She is reporting sinus pressure and dizziness. Bilateral turbinates noted to be boggy and erythematous. Augmentin 875-125 b.i.d. x7 days ordered. Contact the office if symptoms worsens or persists. Encourage increasing fluids hydration. Medications: New 2 amoxicillin-pot clavulanate 875-125 mg 1 tab PO BID 14 tabs 0RF 7 days
--- OUTSIDE RECORDS SUMMARY | 2024-11-22 15:37 | XMS_ITS | Clinical Summary ---
Author Organization [facility] Address [facility] [place] [address] Care Team Providers Care Senior Compensation Consultant Name Role Phone Unavailable Primary Care Provider Unavailabl e Allergies No known active allergies Medications montelukast (Singulair) 10 mg tablet Take 10 mg by mouth daily. Active fluticasone propionate (Flonase) 50 mcg/actuation nasal spray, suspension 2 sprays by Each Nare route daily. [place] into each nostril. Active albuteroL 90 mcg/actuation inhaler (HFA) Inhale 2 puffs into the lungs every 4 hours as needed for Wheezing. Use with Spacer Active acetaminophen (Tylenol) 325 mg tablet Take 3 tablets by mouth every 6 hours. 10/01/2023 Active lidocaine (Lidoderm) 5% Adhesive Patch, Medicated Apply 1 patch onto the skin daily. (leave on for 12 hours and remove for 12 hours) 30 patch 10/02/2023 Active Active Problems Problem Noted Date Diagnosed Date Trauma 09/25/2023 Social History Tobacco Use Types Packs/Day Years Used Date Smoking Tobacco: Former Cigarettes 1979 Smokeless Tobacco: Current Tobacco Cessation:Ready to Q uit: Not Asked; Counseling Given: Not Answered Alcohol Use Standard Drinks/Week Comments Yes 0 (1 standard drink = 0.6 oz pur e alcohol) [facility] Utilities Answer Date Recorded In the past 12 months has e [employer], gas, oil, or water company threatened to shut off services in your home? No 09/26/2023 Hunger Vital Sign Answer Date Recorded Within the past 12 months, y ou worried that your food would run out before you got the money to buy more. Never true 09/26/19 24 Within the past 12 months, t he food you bought just didn't last and you didn't have money to get more. Never true 09/26/2023 PRAPARE - Transportation Answer Date Re corded In the past 12 months, has l ack of transportation kept you from medical appointments or from getting medications? No 09/03 In the past 12 months, has l ack of transportation kept you from meetings, work, or from getting things needed for daily living? No 09/26/2023 Housing Stability Vital Sign Answer Kota e Recorded In the last 12 months, was t here a time when you were not able to pay the mortgage or rent on time? No 09/26/2023 In the past 12 months, how m any times have you moved where you were living? 1 09/26/2023 At any time in the [facility], were you homeless or living in a long term (including now)? No 09/26/2023 DH IPV Inpatient Questions Answer Date Recorded Does Anyone Try to Keep You From Having Contact with Others or Doing Things Outside Your Home? no 09/26/2023 Feels Threatened by Someone no 09/03 Feels Unsafe at Home or Work/School no 09/26/2023 Physical Signs of Abuse Present no 09/26/2023 Comments Unknown Sex and Gender Information Value Date Recorded Sex Assigned at Not on file Legal Sex Female 9:03 PM EDT Gender Identity Not on file Sexual Orientation Not on file Last Filed Vital Signs Vital Sign Reading Time Taken Comments Blood Pressure 169/67 10/02/2023 11:00 AM EDT Pulse 77 10/02/2023 11:00 AM EDT Temperature 36.7 C (98.1 F) 10/02/2023 11:00 AM EDT Respiratory Rate 24 10/02/2023 11:00 AM EDT Oxygen Saturation 99% 10/02/2023 11:00 AM EDT Inhaled Oxygen Concentration - - Weight 63.7 kg (140 lb 6.9 oz) 09/27/2023 12:00 AM EDT Height 170.2 cm (5' 7 ) 09/26/2023 1:00 PM EDT Body Mass Index 21.99 09/26/2023 1:00 PM EDT Plan of Treatment Health Maintenance Due Date Last Done Comments CT Colonography 1962 Colonoscopy 1962 Colorectal Cancer Screening 1962 FIT DNA 1962 FIT 1962 Sigmoidoscopy (10 year) with FIT yearly 1962 Sigmoidoscopy 1962 HIV screen 1980 Hepatitis C Screening 1980 Tetanus/Diphtheria/Pertussis Vaccines (1 - Tdap) 1981 HPV test 1992 PAP Smear 1992 Breast Cancer Share Decision Needed 2002 Breast Cancer screening 2002 Pneumoccocal Vaccine: 50+ (1 of 1 - PCV) 2012 Zoster vaccine (1 of 2) 2012 Advance Directive 2017 Covid-19 Vaccine (3 - season) 2024, 04/25/2020 Influenza (Flu) vaccine (1 o f 1 - Influenza standard series) 01/03/2025 Insurance [facility] OOS Advance Directives * Attempt Cardiopulmonary Resuscitation - Inpatient (Latest Code Status on File) Date Activated Date Inactivated Comments 09/25/2023 10:15 PM 10/02/2023 4:29 PM Question Answer Comments Code Status decision made by: Patient
--- OUTSIDE RECORDS SUMMARY | 2024-11-22 15:37 | XMS_ITS | Data Portability ---
Author Organization [facility], , [facility] Address [address] [place] [address] Assessment No assessment recorded. Plan of Treatment [...] Quirino - Colonoscopy completed Jhon Win MD [address] [place] [address], [id number], [facility] 10/23/2015 10:07:33 Imaging Results None recorded. [...] SNOMED-CT Code Diagnosis ICD10 Code Diagnosis Note [id number] Jhon Win MD [facility], [address] [address] 10/23/2015 08:47:02 10/23/2015 13:48:06 Health Concerns Section Related Observation LastModified by Organization Detai ls LastModified Time None Recorded Concern Status LastModified by Organization Details LastModified Time None Recorded Advance Directives Directive None Recorded Payers Insurance Date Sequence Insurance Name Policy Number Policy Bains Covered Member ID Bains Member ID Guarantor Name 10/23/2015 1 [place]: [employer] ELECT PREFERRED (PPO) [id number] Brittanie Singh [id number] Brittanie Singh OBGyn Episode No OBEpisode recorded.
--- OUTSIDE RECORDS SUMMARY | 2024-11-22 15:37 | XMS_ITS | Encounter Summary ---
Author Organization [facility] Address [address] [place], [place] [id number] Phone Care Team Providers Care Semiconductor Wafers Etcher Stripper Name Role Phone Kim Louise NP Primary Care Provider [phone]- [phone] Encounter Details Date Type Department Care Team (Late st Contact Info) Description 06/02/2020 Procedure Pass [address] [place] [address] Social History Tobacco Use Types Packs/Day Years Used Date Smoking Tobacco: Never Smokeless Tobacco: Never Alcohol Use Standard Drinks/Week Comments Yes 0 (1 standard drink = 0.6 oz pur e alcohol) Comments No Sex and Gender Information Value Date Recorded Sex Assigned at Not on file Legal Sex Female 6:18 PM EST Gender Identity Not on file Sexual Orientation Not on file documented as of this encounter Plan of Treatment Not on file documented as of this encounter Visit Diagnoses Not on filedocumented in this encounter Care Teams Semiconductor Wafers Etcher Stripper Relationship Specialty Start Date End Date Kim Louise NP [address] [place] [address] [address] [place] [address] [email or web address] PCP - General Internal Medicine 06/02/20 documented as of this encounter Additional Source Comments The information contained in this document represents components of the legal health record. It is not the complete legal health record.[facility]
== END 2024-11-22 15:22 | disposition home or self-care (01) ==
LOC: HO.HMCH 14:51
PROVIDERS: PCP Internal Medicine
DX: J01.11 Acute recurrent frontal sinusitis (principal)

== ENCOUNTER 2025-04-21 09:35 | Outpatient (REF) | payer OTHER, SELFPAY ==
--- OUTSIDE RECORDS SUMMARY | 2025-04-21 11:08 | XMS_ITS | Encounter Summary ---
Author Organization [facility] Address [address] [place], [place] [id number] Phone Care Team Providers Care Derrick Boat Captain Name Role Phone Kim Louise NP Primary Care Provider [phone]- [phone] Encounter Details Date Type Department Care Team (Late st Contact Info) Description 04/06/2021 Procedure Pass [address] [place] [address] Social History Tobacco Use Types Packs/Day Years [...] on filedocumented in this encounter Care Teams Derrick Boat Captain Relationship Specialty Start Date End Date Kim Louise NP [address] [place] [address] [address] [place] [address] PCP - General Internal Medicine 06/02/20 documented as of this encounter Additional Source Comments The information contained in this document represents components of the legal health record. It is not the complete legal health record.[facility]
--- OUTSIDE RECORDS SUMMARY | 2025-04-21 11:08 | XMS_ITS | Encounter Summary ---
Author Organization [facility] Address [address] [place], [place] [id number] Phone Care Team Providers Care Rehabilitation Supervisor Name Role Phone Kim Louise NP Primary Care Provider [phone]- [phone] Encounter Details Date Type Department Care Team (Late st Contact Info) Description 06/02/2020 Procedure Pass [address] [place] [address] Social History Tobacco Use Types Packs/Day Years [...] on filedocumented in this encounter Care Teams Rehabilitation Supervisor Relationship Specialty Start Date End Date Kim Louise NP [address] [place] [address] [address] [place] [address] [email or web address] PCP - General Internal Medicine 06/02/20 documented as of this encounter Additional Source Comments The information contained in this document represents components of the legal health record. It is not the complete legal health record.[facility]
--- OUTSIDE RECORDS SUMMARY | 2025-04-21 11:08 | XMS_ITS | Encounter Summary ---
Author Organization [facility] Address [address] [place] [address] Phone Care Team Providers Care Bottle Tester Name Role Phone Kim Louise SOFTWARE DESIGN ANALYST Primary Care Provider [phone]- [phone] Kim Louise SOFTWARE DESIGN ANALYST Primary Care Provider +1- [phone] Encounter Details Date Type Department Care Team (Late st Contact Info) Description 11/10/2017 Ancillary Orders Virtual Department [address] [place] [address] Mary Alice Michaels MD [address] [place] [id number] Breast screening Social History Tobacco Use Types Packs/Day Years Used Date Smoking Tobacco: Never Smokeless Tobacco: Never Alcohol Use Standard Drinks/Week Comments Yes 0 (1 standard drink = 0.6 oz pur e alcohol) Comments Unknown Sex and Gender Information Value Date Recorded Sex Assigned at Not on file Legal Sex Female 6:18 PM EST Gender Identity Not on file Sexual Orientation Not on file documented as of this encounter Plan of Treatment Not on file documented as of this encounter Results * BI MAMMOGRAM SCREENING WITH TOMOSYNTHESIS WITH CAD (BILATERAL) (12/04/2017 1:46 PM EDT) Anatomical Region Laterality Modality Breast Left, Breast Right, Breast Bilateral Bila teral Mammography 12/04/2017 2:01 PM EDT Impressions 12/04/2017 2:03 PM EDT Stable appearance relative to prior imaging. No findings suggestive of malignancy are seen. BI-RADS CATEGORY: 1 - Negative. DENSITY: The breast tissue is heterogeneously dense, an appearance which lowers the sensitivity of mammography. POS - [id number] Narrative 12/04/2017 2:03 PM EDT Full-field digital mammography is obtained with computer-aided detection. Comparison with prior imaging from 10/24/2016 is made with older imaging dating back as far as 10/04/2010 also reviewed. There is heterogeneous fibroglandular density evident in the breasts. In addition to 2-D C view imaging, tomosynthesis images are obtained in two projections of each breast. No dominant soft tissue mass of concern, suspicious cluster of calcifications, significant interval skin changes, or architectural distortion is identified. Procedure Note Solitario Villanueva MD - 12/04/2017 Full-field digital mammography is obtained with computer-aided detection.Comparison with prior imaging from 10/24/2016 is made with older imagingdating back as far as 10/04/2010 also reviewed. There is heterogeneous fibroglandular density evident in the breasts. Inaddition to 2-D C view imaging, tomosynthesis images are obtained in twoprojections of each breast. No dominant soft tissue mass of concern, suspicious cluster ofcalcifications, significant interval skin changes, or architecturaldistortion is identified. IMPRESSION: Stable appearance relative to prior imaging. No findings suggestive ofmalignancy are seen. BI-RADS CATEGORY: 1 - Negative. DENSITY: The breast tissue is heterogeneously dense, an appearance whichlowers the sensitivity of mammography. POS - [id number] Mary Alice Michaels MD IMG MG EXAMS Final Result documented in this encounter Visit Diagnoses Diagnosis Breast screening Breast screening, unspecified Breast screening Breast screening, unspecified documented in this encounter Care Teams Bottle Tester Relationship Specialty Start Date End Date Kim Louise NP [address] [place] [address] [place] [phone] [email or web address] PCP - General 03/10/17 06/01/20 Kim Louise NP [address] [place] [phone] [email or web address] PCP - General Internal Medicine 06/02/20 documented as of this encounter Additional Source Comments The information contained in this document represents components of the legal health record. It is not the complete legal health record.[facility]
--- OUTSIDE RECORDS SUMMARY | 2025-04-21 11:08 | XMS_ITS | Encounter Summary ---
Author Organization [facility] Address [address] [place], [place] [id number] Phone Care Team Providers Care Button Attaching Machine Operator Name Role Phone Kim Louise LINE DRIVER Primary Care Provider +1- [phone] Encounter Details Date Type Department Care Team (Late st Contact Info) Description 06/02/2020 Ancillary Orders [facility] 14 [facility] [address] [place] [address] Kim Louise NP 14 [facility] [address] [place] [address] [phone] [email or web address] Breast screening Social History Tobacco Use Types [...] MAMMOGRAM SCREENING WITH TOMOSYNTHESIS WITH CAD (BILATERAL) (06/09/2020 3:52 PM EST) Anatomical Region Laterality Modality Breast Left, Breast Right, Breast Bilateral Bila teral Mammography 06/12/2020 8:56 AM EST Impressions 06/12/2020 8:59 AM EST No mammographic evidence of malignancy. Recommend routine annual surveillance. BI-RADS CATEGORY: 1 - Negative. DENSITY: There are scattered fibroglandular densities. Narrative 06/12/2020 8:59 AM EST 59-year-old female with no current breast symptoms. Comparison made to previous on 05/20/2019 and as far back as 08/02/2014. Interpretation made in conjunction with computer-aided detection and tomosynthesis. There are scattered areas of fibroglandular density. There are no suspicious masses, areas of architectural distortion, or suspicious clusters of microcalcifications. Procedure Note Chevy Velasco MD - 06/12/2020 59-year-old female with no current breast symptoms. Comparison made toprevious on 05/20/2019 and as far back as 08/02/2014. Interpretation madein conjunction with computer-aided detection and tomosynthesis. There are scattered areas of fibroglandular density. There are no suspicious masses, areas of architectural distortion, orsuspicious clusters of microcalcifications. IMPRESSION: No mammographic evidence of malignancy. Recommend routine annualsurveillance. BI-RADS CATEGORY: 1 - Negative. DENSITY: There are scattered fibroglandular densities. Kim Louise NP IMG MG EXAMS Final Resu lt documented in this encounter Visit Diagnoses Diagnosis Breast screening Breast screening, unspecified Breast screening Breast screening, unspecified documented in this encounter Care Teams Button Attaching Machine Operator Relationship Specialty Start Date End Date Kim Louise NP [address] [place] [address] [email or web address] PCP - General Internal Medicine 06/02/20 documented as of this encounter Additional Source Comments The information contained in this document represents components of the legal health record. It is not the complete legal health record.[facility]
--- OUTSIDE RECORDS SUMMARY | 2025-04-21 11:09 | XMS_ITS | Encounter Summary ---
Author Organization [facility] Address [address] [place], [place] [id number] Phone Care Team Providers Care Registered Nurse Maternity Name Role Phone Kim Louise NP Primary Care Provider +1- [phone] Kim Louise CHEMISTS Primary Care Provider +1- [phone] Encounter Details Date Type Department Care Team (Late st Contact Info) Description 05/14/2019 Ancillary Orders [facility] 14 [facility] [address] [place] [address] Kim Louise NP 14 [facility] [address] [place] [address] [email or web address] Breast screening Social History Tobacco Use Types [...] documented as of this encounter Results * (ABNORMAL) BI MAMMOGRAM SCREENING WITH TOMOSYNTHESIS WITH CAD (BILATERAL) (05/20/2019 4:32 PM EST) Anatomical Region Laterality Modality Breast Left, Breast Right, Breast Bilateral Bila teral Mammography 05/21/2019 11:2 6 AM EST Impressions 05/21/2019 11:47 AM EST RIGHT breast: No mammographic evidence of malignancy. LEFT breast: Incomplete, BI-RADS 0. Possible developing focal asymmetry in the lateral breast, 6 cm from the nipple. RECOMMENDED FOLLOWUP: Diagnostic imaging LEFT breast: Full-field ML, spot compression MLO, spot compression CC and ultrasound. The results will be sent by mail to the patient. Patient will be contacted by phone to schedule additional imaging. BI-RADS CATEGORY: 0 - Incomplete. Need additional imaging evaluation. BREAST COMPOSITION: There are scattered fibroglandular densities. RIGHT RECOMMENDATION DATE: Annual Mammography Screening LEFT RECOMMENDATION DATE: 1 Month Additional Imaging POS - CDHMAMA Edited by: Codi Hong on 05/21/2019 11:33 AM Narrative 05/21/2019 11:47 AM EST EXAM: BI MAMMOGRAM SCREENING WITH TOMOSYNTHESIS WITH CAD (BILATERAL) HISTORY: Screening. * Annual COMPARISON: Prior mammograms, most recent 12/04/2017 and dating back to 07/13/2008. TECHNIQUE: Digital breast tomosynthesis was performed in CC and MLO projections. Reconstructed 2-D C-views generated from the tomosynthesis images. Images interpreted in conjunction with R-2 Image Supervisor [address] computer-aided detection (CAD). FINDINGS: BREAST COMPOSITION: There are scattered areas of fibroglandular density. RIGHT breast: No suspicious masses, suspicious areas of architectural distortion or suspicious microcalcifications. LEFT breast: There is a possible developing focal asymmetry in the lateral breast, on the MLO view along the posterior nipple line, 6 cm from the nipple. No suspicious microcalcifications. Procedure Note Kaylah Chun MD - 05/21/2019 EXAM: BI MAMMOGRAM SCREENING WITH TOMOSYNTHESIS WITH CAD (BILATERAL) HISTORY: Screening. * Annual COMPARISON: Prior mammograms, most recent 12/04/2017 and dating back to07/13/2008. TECHNIQUE: Digital breast tomosynthesis was performed in CC and MLOprojections. Reconstructed 2-D C-views generated from the tomosynthesisimages. Images interpreted in conjunction with R-2 Image Checkercomputer-aided detection (CAD). FINDINGS: BREAST COMPOSITION: There are scattered areas of fibroglandular density. RIGHT breast: No suspicious masses, suspicious areas of architecturaldistortion or suspicious microcalcifications. LEFT breast: There is a possible developing focal asymmetry in the lateralbreast, on the MLO view along the posterior nipple line, 6 cm from thenipple. No suspicious microcalcifications. IMPRESSION: RIGHT breast: No mammographic evidence of malignancy. LEFT breast: Incomplete, BI-RADS 0. Possible developing focal asymmetry inthe lateral breast, 6 cm from the nipple. RECOMMENDED FOLLOWUP: Diagnostic imaging LEFT breast: Full-field ML, spotcompression MLO, spot compression CC and ultrasound. The results will be sent by mail to the patient. Patient will be contactedby phone to schedule additional imaging. BI-RADS CATEGORY: 0 - Incomplete. Need additional imaging evaluation. BREAST COMPOSITION: There are scattered fibroglandular densities. RIGHT RECOMMENDATION DATE: Annual Mammography Screening LEFT RECOMMENDATION DATE: 1 Month Additional Imaging POS - CDHMAMA Edited by: Codi Hong on 05/21/2019 11:33 AM us Kim Louise NP IMG MG EXAMS Final Resu lt documented in this encounter Visit Diagnoses Diagnosis Breast screening Breast screening, unspecified Breast screening Breast screening, unspecified documented in this encounter Care Teams Registered Nurse Maternity Relationship Specialty Start Date End Date Kim Louise NP [address] [place] [address] [place] [address] PCP - General 03/10/17 06/01/20 Kim Louise NP [address] [place] [address] [place] [address] PCP - General Internal Medicine 06/02/20 documented as of this encounter Additional Source Comments The information contained in this document represents components of the legal health record. It is not the complete legal health record.[facility]
--- OUTSIDE RECORDS SUMMARY | 2025-04-21 11:09 | XMS_ITS | Encounter Summary ---
Author Organization [facility] Address [address] [place], [place] [phone] Phone Care Team Providers Care Culinary Arts Instructor Name Role Phone Kim Louise QUALITY ASSURANCE MONITOR FINAL Primary Care Provider +1- [phone] Kim Louise QUALITY ASSURANCE MONITOR FINAL Primary Care Provider +1- [phone] Encounter Details Date Type Department Care Team (Late st Contact Info) Description 05/21/2019 Ancillary Orders [facility] 14 [facility] [address] [place] [address] Kim Louise NP 14 [facility] [address] [place] [address] [email or web address] Abnormal mammogram Social History Tobacco Use Types Packs/Day Years [...] as of this encounter Results * BI US BREAST LIMITED (LEFT) (06/03/2019 3:31 PM EST) Anatomical Region Laterality Modality Breast Left, Breast Bilateral Left Ul trasound 06/03/2019 2:28 PM EST Addenda Addendum by Kaylah Chun MD on 06/04/2019 9:00 AM EST EXAM: BI MAMMOGRAM DIAGNOSTIC WITH TOMOSYNTHESIS WITH CAD (LEFT), BI US BREAST LIMITED (LEFT) HISTORY: Abnormal mammogram , stable developing focal asymmetry. COMPARISON: 2019, 12/04/2017, 10/24/2016. TECHNIQUE: LEFT breast digital tomosynthesis imaging: Spot compression MLO, spot compression CC and full field ML views. Reconstructed 2-D views were generated from the tomosynthesis images. Images were interpreted in conjunction with R-2 Image Evening Sitter computer-aided detection. FINDINGS: MAMMOGRAM: BREAST COMPOSITION: There are scattered fibroglandular densities. With spot compression, previously identified focal asymmetry becomes less discrete on the additional images. No suspicious architectural distortion, mass or microcalcifications. ULTRASOUND: Limited LEFT breast ultrasound, imaging of the lateral breast, imaged 12:00 to 6:00, focused at 3:00. No solid mass or suspicious shadowing. At 3:00, 5 cm from the nipple, there is a focally dilated duct. No mass, abnormal blood flow or echoes within the mildly dilated duct. IMPRESSION: No mammographic or ultrasound evidence of malignancy. Focally dilated duct at 3:00, 5 cm from the nipple. FOLLOW-UP: Routine screening mammography is recommended, as clinically appropriate. The findings and recommendations verbally discussed with the patient in the Radiology Department on the day of the study, 06/03/2019. >> BI-RADS CATEGORY: 2 - Benign finding. BREAST COMPOSITION: There are scattered fibroglandular densities. << Edited by: Codi Hong on 06/04/2019 8:37 AM Impressions 06/03/2019 6:36 PM EST No mammographic or ultrasound evidence of malignancy. Focally dilated duct at 3:00, 5 cm from the nipple. FOLLOW-UP: Routine screening mammography is recommended, as clinically appropriate. The findings and recommendations verbally discussed with the patient in the Radiology Department on the day of the study, 06/03/2019. BREAST COMPOSITION: POS - CDHMAMA Narrative 06/03/2019 6:36 PM EST EXAM: BI MAMMOGRAM DIAGNOSTIC WITH TOMOSYNTHESIS WITH CAD (LEFT), BI US BREAST LIMITED (LEFT) HISTORY: Abnormal mammogram , stable developing focal asymmetry. COMPARISON: 2019, 12/04/2017, 10/24/2016. TECHNIQUE: LEFT breast digital tomosynthesis imaging: Spot compression MLO, spot compression CC and full field ML views. Reconstructed 2-D views were generated from the tomosynthesis images. Images were interpreted in conjunction with R-2 Image Evening Sitter computer-aided detection. FINDINGS: MAMMOGRAM: BREAST COMPOSITION: There are scattered fibroglandular densities. With spot compression, previously identified focal asymmetry becomes less discrete on the additional images. No suspicious architectural distortion, mass or microcalcifications. ULTRASOUND: Limited LEFT breast ultrasound, imaging of the lateral breast, imaged 12:00 to 6:00, focused at 3:00. No solid mass or suspicious shadowing. At 3:00, 5 cm from the nipple, there is a focally dilated duct. No mass, abnormal blood flow or echoes within the mildly dilated duct. Procedure Note Kaylah Chun MD - 06/03/2019 EXAM: BI MAMMOGRAM DIAGNOSTIC WITH TOMOSYNTHESIS WITH CAD (LEFT), BI USBREAST LIMITED (LEFT) HISTORY: Abnormal mammogram , stable developing focal asymmetry. COMPARISON: 2019, 12/04/2017, 10/24/2016. TECHNIQUE: LEFT breast digital tomosynthesis imaging: Spot compressionMLO, spot compression CC and full field ML views. Reconstructed 2-D viewswere generated from the tomosynthesis images. Images were interpreted inconjunction with R-2 Image Evening Sitter computer-aided detection. FINDINGS: MAMMOGRAM: BREAST COMPOSITION: There are scattered fibroglandular densities. With spot compression, previously identified focal asymmetry becomes lessdiscrete on the additional images. No suspicious architectural distortion, mass or microcalcifications. ULTRASOUND: Limited LEFT breast ultrasound, imaging of the lateral breast,imaged 12:00 to 6:00, focused at 3:00. No solid mass or suspicious shadowing. At 3:00, 5 cm from the nipple,there is a focally dilated duct. No mass, abnormal blood flow or echoeswithin the mildly dilated duct. IMPRESSION: No mammographic or ultrasound evidence of malignancy. Focally dilated duct at 3:00, 5 cm from the nipple. FOLLOW-UP: Routine screening mammography is recommended, as clinicallyappropriate. The findings and recommendations verbally discussed with the patient inthe Radiology Department on the day of the study, 06/03/2019. BREAST COMPOSITION: POS - CDHMAMA us [place] Brady[place]ati Louise QUALITY ASSURANCE MONITOR FINAL IMG US BREAST Edited Res ult - Final * BI MAMMOGRAM DIAGNOSTIC WITH TOMOSYNTHESIS WITH CAD (LEFT) (06/03/2019 2:12 PM EST) Anatomical Region Laterality Modality Breast Left Left Mammography 06/03/2019 2:28 PM EST Addenda Addendum by Kaylah Chun MD on 06/04/2019 9:00 AM EST EXAM: BI MAMMOGRAM DIAGNOSTIC WITH TOMOSYNTHESIS WITH CAD (LEFT), BI US BREAST LIMITED (LEFT) HISTORY: Abnormal mammogram , stable developing focal asymmetry. COMPARISON: 2019, 12/04/2017, 10/24/2016. TECHNIQUE: LEFT breast digital tomosynthesis imaging: Spot compression MLO, spot compression CC and full field ML views. Reconstructed 2-D views were generated from the tomosynthesis images. Images were interpreted in conjunction with R-2 Image Evening Sitter computer-aided detection. FINDINGS: MAMMOGRAM: BREAST COMPOSITION: There are scattered fibroglandular densities. With spot compression, previously identified focal asymmetry becomes less discrete on the additional images. No suspicious architectural distortion, mass or microcalcifications. ULTRASOUND: Limited LEFT breast ultrasound, imaging of the lateral breast, imaged 12:00 to 6:00, focused at 3:00. No solid mass or suspicious shadowing. At 3:00, 5 cm from the nipple, there is a focally dilated duct. No mass, abnormal blood flow or echoes within the mildly dilated duct. IMPRESSION: No mammographic or ultrasound evidence of malignancy. Focally dilated duct at 3:00, 5 cm from the nipple. FOLLOW-UP: Routine screening mammography is recommended, as clinically appropriate. The findings and recommendations verbally discussed with the patient in the Radiology Department on the day of the study, 06/03/2019. >> BI-RADS CATEGORY: 2 - Benign finding. BREAST COMPOSITION: There are scattered fibroglandular densities. << Edited by: Codi Hong on 06/04/2019 8:37 AM Impressions 06/03/2019 6:36 PM EST No mammographic or ultrasound evidence of malignancy. Focally dilated duct at 3:00, 5 cm from the nipple. FOLLOW-UP: Routine screening mammography is recommended, as clinically appropriate. The findings and recommendations verbally discussed with the patient in the Radiology Department on the day of the study, 06/03/2019. BREAST COMPOSITION: POS - CDHMAMA Narrative 06/03/2019 6:36 PM EST EXAM: BI MAMMOGRAM DIAGNOSTIC WITH TOMOSYNTHESIS WITH CAD (LEFT), BI US BREAST LIMITED (LEFT) HISTORY: Abnormal mammogram , stable developing focal asymmetry. COMPARISON: 2019, 12/04/2017, 10/24/2016. TECHNIQUE: LEFT breast digital tomosynthesis imaging: Spot compression MLO, spot compression CC and full field ML views. Reconstructed 2-D views were generated from the tomosynthesis images. Images were interpreted in conjunction with R-2 Image Evening Sitter computer-aided detection. FINDINGS: MAMMOGRAM: BREAST COMPOSITION: There are scattered fibroglandular densities. With spot compression, previously identified focal asymmetry becomes less discrete on the additional images. No suspicious architectural distortion, mass or microcalcifications. ULTRASOUND: Limited LEFT breast ultrasound, imaging of the lateral breast, imaged 12:00 to 6:00, focused at 3:00. No solid mass or suspicious shadowing. At 3:00, 5 cm from the nipple, there is a focally dilated duct. No mass, abnormal blood flow or echoes within the mildly dilated duct. us Kim Louise NP IMG MG EXAMS Edited Res ult - Final documented in this encounter Visit Diagnoses Diagnosis Abnormal mammogram Abnormal mammogram, unspecified Abnormal mammogram Abnormal mammogram, unspecified Abnormal mammogram Abnormal mammogram, unspecified documented in this encounter Care Teams Culinary Arts Instructor Relationship Specialty Start Date End Date Kim Louise NP [address] [place] [address] [address] [place] [address] [email or web address] PCP - General 03/10/17 06/01/20 Kim Louise NP [address] [place], [place] [address] [place] [address] [email or web address] PCP - General Internal Medicine 06/02/20 documented as of this encounter Additional Source Comments The information contained in this document represents components of the legal health record. It is not the complete legal health record.[facility]
--- OUTSIDE RECORDS SUMMARY | 2025-04-21 11:09 | XMS_ITS | Clinical Summary ---
Author Organization [facility] Address [address] [place], [place] [id number] Phone Care Team Providers Care [employer] Officer Name Role Phone Dani [place] GUEST SERVICES OFFICER Primary Care Provider [phone] Allergies Active Allergy Reactions Criticality Noted Date Comments Sulfa (Sulfonamide Antibiotics) 10/2016 Medications ACETAMINOPHEN (TYLENOL ORAL) Activ e MULTIVITAMIN (MULTIPLE VITAMINS ORAL) Activ e fluticasone propionate (FLONASE) 50 mcg/actuation nasal spray 2 sprays by Nasal route daily. Active ibuprofen (ADVIL,MOTRIN) 800 MG tablet Take 1 tablet by mouth daily as needed. Active montelukast (SINGULAIR) 10 mg tabletIndication s:Non-seasonal allergic rhinitis due to fungal spores Take 1 tablet (10 mg total) by mouth every evening. 90 tablet 2 09/19/2022 Active Active Problems Problem Noted Date Diagnosed Date Non-seasonal allergic rhinitis due to fungal spo res 11/19/2017 Overview (11/19/2017): testing 07/04/17: POS: DM, cat dog, grass, trees, weeds, MOLDs Assessment & Plan (11/19/2017 8:42 AM EDT): Markedly positive testing to both perennial and seasonal allergens with major symptoms with nasal congestion and recurrent fall, early winter sinus infections. Currently on high-dose Flonase and Singulair and daily loratadine with notable improvement in daily nasal congestion. Given lack of severe symptoms, would defer allergy immunotherapy at this time as patient feels comfortable with current medical management. Recommend trial of adding intranasal antihistamines, Astelin 1 spray each side twice daily. Try adding now for defer until late fall with typical increase in symptoms. Can continue loratadine or stop if feels unnecessary. Nasal polyps 11/19/2017 Assessment & Plan (11/19/2017 8:43 AM EDT): Small nasal polyps per patient's accounting of previous ENT exam. Did not appear severe and no known NSAID sensitivity. Recommend management for allergic disease as above. Recurrent sinusitis 11/19/2017 Assessment & Plan (11/19/2017 8:41 AM EDT): Recurrent seasonal sinusitis, likely associated with underlying allergic rhinitis. Discussed importance of both preventive and then acute management. With acute onset, recommend double Flonase dose, 2 sprays each nares twice daily, add 2-3 days of Afrin nasal spray followed by 1 week of oral decongestants. Addition of nasal irrigation with Siomara pot or sinus rinse may also improve drainage. Above interventions hopefully will reduce need for antibiotics. If continues to get recurrent sinus infections, imaging to evaluate anatomy as well as then consider proceeding with allergy immunotherapy. 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 Immunizations Immunization Administration Dates Next Due COVID-19 (Pre-02/24) Moderna Vaccine, mRNA, PF 0 05/24/2020,04/25/2020 Influenza Quadrivalent Preservative Free IM 02/02,02/04/2017 Influenza Quadrivalent w/ Preservative IM 2019,02/14/2016 Td (adult),2 Lf Tetanus Toxoid, PF, Adsorbed Family History Medical History Relation Comments Thyroid disease Father Breast cancer Maternal Aunt Cancer Mother Relation Status Comments Father Alive Maternal Aunt Mother Alive Social History Tobacco Use Types Packs/Day Years Used Date Smoking Tobacco: Never Smokeless Tobacco: Never Alcohol Use Standard Drinks/Week Comments Yes 0 (1 standard drink = 0.6 oz pur e alcohol) Education Answer Date Recorded Are you interested in more education? Not on melissa e 09/01/2022 Are you concerned about learning? Not on file 09/01/2022 No 09/01/2022 No 09/01/2022 Digital Access Answer Date Recorded No 09/29/2022 No 09/29/2022 No 09/29/2022 Reliable internet access at home? Not on file 09/29/2022 Device with a working camera? Not on file Comments No Sex and Gender Information Value Date Recorded Sex Assigned at Not on file Legal Sex Female 6:18 PM EST Gender Identity Not on file Sexual Orientation Not on file Last Filed Vital Signs Vital Sign Reading Time Taken Comments Blood Pressure 110/68 06/06/2020 11:42 AM EST patient reported Pulse 56 06/06/2020 11:42 AM EST patient reported Temperature 36.8 C (98.3 F) 11/19/2017 7:52 AM EDT Respiratory Rate 17 06/06/2020 11:4 2 AM EST patient reported Oxygen Saturation 98% 06/06/2020 11: 42 AM EST patient reported Inhaled Oxygen Concentration - - Weight 62.6 kg (138 lb) 06/06/2020 11:4 2 AM EST patient reported Height 170.2 cm (5' 7 ) 06/17/2018 10:0 7 AM EST Body Mass Index 21.61 06/17/2018 10:07 AM EST Plan of Treatment Health Maintenance Due Date Last Done Comments LIPID PANEL 1962 DEPRESSION SCREENING 1974 HEPATITIS C SCREENING 1980 HIV ONE-TIME SCREENING (18-65 YEARS) 1980 PAP SMEAR 07/26/1983 COLOGUARD 07/26/2007 COLONOSCOPY 07/26/2007 COLORECTAL CANCER SCREENING 07/26/2007 FIT TEST 07/26/2007 FOBT 07/26/2007 SIGMOIDOSCOPY 07/26/2007 VIRTUAL COLONOSCOPY 07/26/2007 PNEUMOCOCCAL VACCINES (50+ years) (1 of 1 - PCV) 2012 ZOSTER VACCINES (1 of 2) 2012 MAMMOGRAM 09/19/2024 09/19/2022, 0211/2021, 06/09/2020, Additional history exists INFLUENZA VACCINE (#1) 2024 , 01/24/2020, 02/23/2019, Additional history exists COVID-19 VACCINE ( - 2024-26 season) 2025 03/09/2021, 05/24/2020, 04/25/2020 Adult Td,Tdap Booster 11/20/2028 11/20/2018 RSV VACCINE (1 - 1-dose 75+ series) 2037 SMOKING STATUS SCREENING (Once After 26 Yrs) Completed 06/11/2021 HEPATITIS A VACCINES Aged Out No long er eligible based on patient's age to complete this topic HIB VACCINES Aged Out No longer eligi ble based on patient's age to complete this topic MENINGOCOCCAL VACCINES (ACWY) Aged Out No longer eligible based on patient's age to complete this topic MENINGOCOCCAL VACCINES (B) Aged Out N o longer eligible based on patient's age to complete this topic Medical Devices Not on file Procedures Procedure Name Priority Date/Time Associated Diagnosis Comments MAMMOGRAPHY Routine 09/19/2022 from Last 3 Months or Most Recently Relevant to Health Maintenance Results * MAMMOGRAPHY FOR RESULT ENTRY ONLY (09/19/2022) Kim Louise NP HEALTH MAINTENANCE Edited Result - Final from Last 3 Months or Most Recently Relevant to Health Maintenance Care Teams [employer] Officer Relationship Specialty Start Date End Date Kim Louise, CHILANGO [address] [place] [address] [address] [place] [address] [email or web address] PCP - General Internal Medicine 06/02/20 Additional Source Comments The information contained in this document represents components of the legal health record. It is not the complete legal health record.[facility]
--- OUTSIDE RECORDS SUMMARY | 2025-04-21 11:09 | XMS_ITS | Clinical Summary ---
Author Organization [facility] Address [facility] [place] [address] Care Team Providers Care Clipper Operator Name Role Phone Unavailable Primary Care Provider Unavailabl e Allergies No known active allergies Medications montelukast (Singulair) 10 mg tablet Take 10 mg by mouth daily. Active fluticasone propionate (Flonase) 50 mcg/actuation nasal spray, suspension 2 sprays by Each Nare route daily. [place] into each nostril. Active albuteroL 90 mcg/actuation [...] drink = 0.6 oz pur e alcohol) [facility] Utilities Answer Date Recorded In the past 12 months has e [employer], gas, oil, or water company threatened to [...] any time in the past 12 m [facility], were you homeless or living in a correction (including now)? No 09/26/2023 DH IPV Inpatient [...] Directive 2017 Covid-19 Vaccine (3 - season) 2025, 04/25/2020 Influenza (Flu) vaccine (1 o f 1 - Influenza standard series) 01/03/2025 Insurance [facility] OOS Advance Directives * Attempt Cardiopulmonary Resuscitation - Inpatient (Latest Code Status on File) Date Activated Date Inactivated Comments 09/25/2023 10:15 PM 10/02/2023 4:29 PM Question Answer Comments Code Status decision made by: Patient
[2025-04-22 05:19] LABS: Lyme Abs Screen <0.90 index
== END 2025-04-21 09:36 | disposition home or self-care (01) ==
LOC: HO.LAB 09:35
PROVIDERS: Visit Provider Internal Medicine
DX: A69.20 Lyme disease, unspecified (principal)
CPT/HCPCS: 36415; 85652; 86617; 86618